=== PATIENT | female | born 1950 | race Caucasian/White ===

== ENCOUNTER 2018-11-19 12:34 | Observation (INO) ==
[2018-11-19] MEDS ORDERED: TUSSIONEX PENNKINETIC SUSP PO PRN (13:59)
[2018-11-19 14:29] LABS: BASOPHILS % (AUTO) 0.4 % (0.2-1.0); EOSINOPHILS # (AUTO) 0.2 x10^3/uL (0.0-0.2); LYMPHOCYTES # (AUTO) 1.8 X10^3/uL (1.3-2.9); MEAN CORPUSCULAR HEMOGLOBIN 29.9 pg (27.0-34.0); MEAN CORPUSCULAR HGB CONC 34.1 g/dL (33.0-35.0); MEAN CORPUSCULAR VOLUME 87.5 fL (80.0-100.0); MEAN PLATELET VOLUME 8.8 fL (7.4-11.0); MONOCYTES # (AUTO) 0.4 x10^3/uL (0.3-0.8); MONOCYTES % (AUTO) 3.7 % (0.0-13.0); NEUTROPHILS # (AUTO) 8.9 x10^3/uL (2.2-4.8); NEUTROPHILS % (AUTO) 77.9 % (42.0-75.0); PLATELET COUNT 314 X10^3/uL (150.0-450.0); RED BLOOD COUNT 5.03 X10^6/uL (3.5-5.4); RED CELL DISTRIBUTION WIDTH 14.2 % (11.6-16.5); WHITE BLOOD COUNT 11.5 X10^3/uL (3.6-10.0)
--- NOTE | 2018-11-19 14:37 | RAD ---
Exam: Chest two views History: 68-year-old female with pneumonia Comparison: Previous chest radiograph from 03/28/2013 Findings: Heart size and pulmonary vasculature are normal. Lungs are clear with no infiltrate or significant effusion on either side. Multiple surgical clips are present the right axillary region. Bony thorax is unremarkable. Impression: No acute cardiopulmonary abnormality is seen on this exam Reported By:
[2018-11-19 14:40] LABS: ALANINE AMINOTRANSFERASE 74 Units/L (12-78); ALKALINE PHOSPHATASE 65 Units/L (46-116); ASPARTATE AMINO TRANSFERASE 53 Units/L (15-37); BLOOD UREA NITROGEN 14 mg/dL (7-18); CALCIUM 9.8 mg/dL (8.5-10.1); CARBON DIOXIDE 25.8 mmol/L (21-32); CHLORIDE 103 mmol/L (98-107); COR NA(FOR HYPERGLY) 145 mmol/L (136-145); CREATININE 0.93 mg/dL (0.55-1.02); SODIUM 143 mmol/L (136-145); TOTAL PROTEIN 7.7 g/dL (6.4-8.2); eGFR NON BLACK RACES > 60 (>60)
[2018-11-19] MEDS: DUONEB 0.5 MG/3 MG NEB SCH ×2 (15:40→20:34)
[2018-11-19] MEDS ORDERED: SALINE 3% 15 ML NEB TX NEB ONE (16:03)
[2018-11-19] MEDS ORDERED: NS 1/2 1000 ML IV 1,000 ML IV ONE (16:10)
[2018-11-19] MEDS: FORTAZ or TAZICEF VIAL INJ IVP SCH ×2 (16:21→21:50)
[2018-11-19] MEDS: ROBITUSSIN DM PO SCH ×2 (16:22→20:34)
[2018-11-19] MEDS: NS 1/2 1000 ML IV 1,000 ML IV SCH (16:22)
[2018-11-19] MEDS: LEVAQUIN PREMIX IV 750 MG 750 MG/150 ML BAG IV SCH (16:22)
[2018-11-19] MEDS ORDERED: HumuLIN R SUBCUT PRN (16:48)
[2018-11-19] MEDS ORDERED: RESTORIL CAP 15 MG PO PRN (19:16)
[2018-11-19] MEDS: NORCO 5/325 MG TAB PO PRN (20:32)
[2018-11-19] MEDS: SNACK - Diabetic Appropriate PO SCH (20:41)
[2018-11-19 22:09] VITALS: BMI 27.1
[2018-11-20] MEDS: DUONEB 0.5 MG/3 MG NEB SCH ×6 (00:58→20:36)
[2018-11-20] MEDS ORDERED: NS 1/2 1000 ML IV 0 ML IV ONE (04:42)
[2018-11-20] MEDS: FORTAZ or TAZICEF VIAL INJ IVP SCH ×3 (05:05→21:23)
[2018-11-20] MEDS: NS 1/2 1000 ML IV 1,000 ML IV SCH ×3 (05:05→21:40)
[2018-11-20 06:14] LABS: BASOPHILS # (AUTO) 0.1 X10^3/uL (0.0-0.1); BASOPHILS % (AUTO) 0.5 % (0.2-1.0); EOSINOPHILS # (AUTO) 0.3 x10^3/uL (0.0-0.2); EOSINOPHILS % (AUTO) 3.3 % (0.9-2.9); HEMATOCRIT 42.3 % (36.0-47.0); HEMOGLOBIN 14.2 g/dL (12.0-16.0); LYMPHOCYTES # (AUTO) 2.3 X10^3/uL (1.3-2.9); LYMPHOCYTES % (AUTO) 23.1 % (21.0-51.0); MEAN CORPUSCULAR HEMOGLOBIN 29.6 pg (27.0-34.0); MEAN CORPUSCULAR HGB CONC 33.7 g/dL (33.0-35.0); MEAN CORPUSCULAR VOLUME 87.9 fL (80.0-100.0); MONOCYTES # (AUTO) 0.6 x10^3/uL (0.3-0.8); MONOCYTES % (AUTO) 5.7 % (0.0-13.0); NEUTROPHILS # (AUTO) 6.7 x10^3/uL (2.2-4.8); NEUTROPHILS % (AUTO) 67.4 % (42.0-75.0); PLATELET COUNT 284 X10^3/uL (150.0-450.0); RED BLOOD COUNT 4.81 X10^6/uL (3.5-5.4); RED CELL DISTRIBUTION WIDTH 14.3 % (11.6-16.5)
[2018-11-20 06:25] LABS: ALANINE AMINOTRANSFERASE 61 Units/L (12-78); ALBUMIN 3.6 g/dL (3.4-5.0); ALKALINE PHOSPHATASE 66 Units/L (46-116); ASPARTATE AMINO TRANSFERASE 31 Units/L (15-37); BLOOD UREA NITROGEN 15 mg/dL (7-18); CALCIUM 9.3 mg/dL (8.5-10.1); CARBON DIOXIDE 28.3 mmol/L (21-32); CHLORIDE 102 mmol/L (98-107); COR NA(FOR HYPERGLY) 145 mmol/L (136-145); CREATININE 0.92 mg/dL (0.55-1.02); SODIUM 143 mmol/L (136-145); TOTAL PROTEIN 7.1 g/dL (6.4-8.2); eGFR NON BLACK RACES > 60 (>60)
[2018-11-20] MEDS ORDERED: POTASSIUM CHL 40 MEQ/NS 0.45% 500 ML IV PRN (06:36)
[2018-11-20] MEDS ORDERED: K-DUR TAB 20 MEQ PO PRN (06:36)
[2018-11-20] MEDS ORDERED: MICRO K EXTEN CAP 10 MEQ PO PRN (06:36)
[2018-11-20] MEDS ORDERED: KLOR-CON PO PRN (06:36)
[2018-11-20] MEDS ORDERED: POTASSIUM CHLORIDE LIQ 20 MEQ UDC PO PRN (06:36)
[2018-11-20] MEDS ORDERED: POTASSIUM CHL 60 MEQ/NS 0.45% 500 ML IV PRN (06:36)
[2018-11-20] MEDS ORDERED: K-RIDER 10 MEQ/NS 100 ML 10 MEQ/100 ML BAG IV PRN (06:36)
--- NOTE | 2018-11-20 07:15 | RAD ---
HISTORY: Pneumonia. Prior history of hypertension, diabetes, sarcoidosis Study: Single-view chest Comparison: 11/19/2018. Findings: Trachea is midline. Heart size is normal. There is atherosclerotic calcification and uncoiling of the aortic arch. Mild hyperinflation of the lungs is seen with increased interstitial markings bilaterally. No consolidation, pleural fluid or pneumothorax is seen. There are multiple surgical clips present in the right axilla. Osseous structures are intact. IMPRESSION: Hyperinflation of the lungs with increased interstitial markings. In the appropriate clinical setting findings may indicate COPD. An acute process is not identified. Reported By:
[2018-11-20] MEDS ORDERED: NS 1/2 1000 ML IV 1,000 ML IV ONE ×2 (08:21→21:37)
[2018-11-20] MEDS: LEVAQUIN PREMIX IV 750 MG 750 MG/150 ML BAG IV SCH (08:45)
[2018-11-20] MEDS: ROBITUSSIN DM PO SCH ×4 (08:45→21:23)
[2018-11-20] MEDS: MAGNESIUM SULFATE 1 GRAM/100 mL PREMIX 1 GM/100 ML BAG IV PRN ×2 (11:00→15:00)
[2018-11-20] MEDS: NORCO 5/325 MG TAB PO PRN (11:40)
[2018-11-20] MEDS: ZEBETA TAB 5 MG PO SCH (12:00)
[2018-11-20] MEDS: NexIUM PO SCH (12:00)
[2018-11-20] MEDS: TESSALON PERLES PO SCH ×3 (12:00→21:23)
[2018-11-20] MEDS: EFFEXOR XR 150 MG CAP PO SCH (12:00)
[2018-11-20] MEDS: SYNTHROID 125 mcg TAB PO SCH (12:01)
[2018-11-20] MEDS: GLUCOPHAGE XR PO SCH ×2 (12:01→21:24)
[2018-11-20] MEDS: SINGULAIR TAB 10 MG PO SCH ×2 (12:01→21:24)
[2018-11-20] MEDS: TORADOL 30 MG VIAL IVP SCH ×2 (12:01→21:24)
[2018-11-20] MEDS: TUSSIONEX PENNKINETIC SUSP PO SCH ×3 (12:02→23:05)
[2018-11-20] MEDS: PULMICORT NEB TX 0.5 MG NEB SCH ×2 (12:08→20:36)
[2018-11-20] MEDS: IRBESARTAN HYDROCHLOROTHIAZIDE PO SCH ×2 (15:18→18:07)
[2018-11-20] MEDS ORDERED: NORCO 10/325 TAB PO PRN (15:20)
[2018-11-20] MEDS: PATIENT'S HOME MEDICATION (Empagliflozin [Jardiance] 25 MG) PO SCH ×2 (16:33→18:07)
[2018-11-20] MEDS ORDERED: PATIENT'S HOME MEDICATION (Eszopiclone [Lunesta] 3 MG) PO SCH (21:00)
[2018-11-20] MEDS ORDERED: LIPITOR TAB 20 MG PO SCH (21:00)
[2018-11-20] MEDS: SNACK - Diabetic Appropriate PO SCH (21:22)
[2018-11-21] MEDS: DUONEB 0.5 MG/3 MG NEB SCH ×4 (01:52→13:48)
[2018-11-21] MEDS: TORADOL 30 MG VIAL IVP SCH ×2 (03:03→11:16)
[2018-11-21] MEDS: FORTAZ or TAZICEF VIAL INJ IVP SCH ×2 (05:44→13:31)
[2018-11-21] MEDS: TESSALON PERLES PO SCH ×2 (05:44→13:31)
[2018-11-21 07:02] LABS: ALANINE AMINOTRANSFERASE 50 Units/L (12-78); ALBUMIN 3.2 g/dL (3.4-5.0); ALKALINE PHOSPHATASE 57 Units/L (46-116); ASPARTATE AMINO TRANSFERASE 27 Units/L (15-37); BLOOD UREA NITROGEN 12 mg/dL (7-18); CALCIUM 8.7 mg/dL (8.5-10.1); CARBON DIOXIDE 23.6 mmol/L (21-32); CHLORIDE 106 mmol/L (98-107); COR CA(FOR HYPOALB) 9.3 mg/dL (8.5-10.1); COR NA(FOR HYPERGLY) 143 mmol/L (136-145); CREATININE 0.85 mg/dL (0.55-1.02); MAGNESIUM 1.9 mg/dL (1.7-2.9); SODIUM 142 mmol/L (136-145); TOTAL PROTEIN 6.3 g/dL (6.4-8.2); eGFR NON BLACK RACES > 60 (>60)
[2018-11-21 07:23] LABS: BASOPHILS % (AUTO) 0.4 % (0.2-1.0); EOSINOPHILS # (AUTO) 0.5 x10^3/uL (0.0-0.2); EOSINOPHILS % (AUTO) 5.7 % (0.9-2.9); HEMATOCRIT 36.5 % (36.0-47.0); HEMOGLOBIN 12.7 g/dL (12.0-16.0); LYMPHOCYTES # (AUTO) 1.7 X10^3/uL (1.3-2.9); LYMPHOCYTES % (AUTO) 19.5 % (21.0-51.0); MEAN CORPUSCULAR HEMOGLOBIN 30.5 pg (27.0-34.0); MEAN CORPUSCULAR HGB CONC 34.9 g/dL (33.0-35.0); MEAN CORPUSCULAR VOLUME 87.3 fL (80.0-100.0); MEAN PLATELET VOLUME 9.2 fL (7.4-11.0); MONOCYTES # (AUTO) 0.5 x10^3/uL (0.3-0.8); MONOCYTES % (AUTO) 5.4 % (0.0-13.0); NEUTROPHILS # (AUTO) 5.9 x10^3/uL (2.2-4.8); PLATELET COUNT 260 X10^3/uL (150.0-450.0); RED BLOOD COUNT 4.18 X10^6/uL (3.5-5.4); RED CELL DISTRIBUTION WIDTH 14.2 % (11.6-16.5); WHITE BLOOD COUNT 8.5 X10^3/uL (3.6-10.0)
[2018-11-21] MEDS: PULMICORT NEB TX 0.5 MG NEB SCH (09:03)
[2018-11-21] MEDS: LEVAQUIN PREMIX IV 750 MG 750 MG/150 ML BAG IV SCH (09:38)
[2018-11-21] MEDS: NexIUM PO SCH (09:39)
[2018-11-21] MEDS: ROBITUSSIN DM PO SCH ×2 (09:39→13:31)
[2018-11-21] MEDS: GLUCOPHAGE XR PO SCH (09:39)
[2018-11-21] MEDS: EFFEXOR XR 150 MG CAP PO SCH (09:40)
[2018-11-21] MEDS: ZEBETA TAB 5 MG PO SCH (09:40)
[2018-11-21] MEDS: NS 1/2 1000 ML IV 1,000 ML IV SCH (09:40)
[2018-11-21] MEDS: SYNTHROID 125 mcg TAB PO SCH (09:40)
[2018-11-21] MEDS: IRBESARTAN HYDROCHLOROTHIAZIDE PO SCH (09:47)
[2018-11-21] MEDS: PATIENT'S HOME MEDICATION (Empagliflozin [Jardiance] 25 MG) PO SCH (09:47)
[2018-11-21] MEDS: TUSSIONEX PENNKINETIC SUSP PO SCH (11:17)
[2018-11-21 12:16] VITALS: BP 113/58
--- NOTE | 2018-11-21 13:05 | RAD ---
HISTORY: Pneumonia Study: AP portable chest Comparison: 11/20/2018 Findings: The lungs remain clear. The heart size is normal. Surgical clips are present in the right axilla suggesting axillary node dissection. No acute bony abnormalities are identified. IMPRESSION: 1. No radiographic evidence of acute cardiopulmonary disease or significant change is noted when compared to the prior examination. Reported By:
[2018-11-21] MEDS ORDERED: NS 100 ML IV + SPIKE MINIBAG* 100 ML IV ONE (13:25)
== END 2018-11-21 14:50 | disposition home or self-care (01) ==
LOC: MED/SURG
PROVIDERS: ADMIT Internal Medicine; ATTEND Internal Medicine
DX: Z85.3 Personal history of malignant neoplasm of breast; J18.9 Pneumonia, unspecified organism; R51 Headache; Z90.13 Acquired absence of bilateral breasts and nipples
CPT/HCPCS: 36415; 71010; 71020; 71045; 71046; 80053; 83735; 84132; 85025; 87040; 87070; 87205; 94640; 94760; 96367; 96374; A4222; G0378; J0713; J1815; J1885; J1956; J3475; J7620; J7626

== ENCOUNTER 2025-01-20 12:04 | Observation (INO) ==
[2025-01-20] MEDS: ZOFRAN INJ 4 MG VIAL IVP ONE (12:43)
[2025-01-20] MEDS: MORPHINE SULFATE INJ 4 MG IVP ONE (12:45)
[2025-01-20 12:46] VITALS: BMI 24.5
[2025-01-20 13:01] LABS: BASOPHILS # (AUTO) 0.1 X10^3/uL (0.0-0.1); BASOPHILS % (AUTO) 0.4 % (0.2-1.0); EOSINOPHILS # (AUTO) 0.3 x10^3/uL (0.0-0.2); EOSINOPHILS % (AUTO) 2.2 % (0.9-2.9); HEMATOCRIT 44.8 % (36.0-47.0); HEMOGLOBIN 15.4 g/dL (12.0-16.0); LYMPHOCYTES # (AUTO) 1.4 X10^3/uL (1.3-2.9); LYMPHOCYTES % (AUTO) 11.7 % (21.0-51.0); MEAN CORPUSCULAR HEMOGLOBIN 32.1 pg (27.0-34.0); MEAN CORPUSCULAR HGB CONC 34.3 g/dL (33.0-35.0); MEAN CORPUSCULAR VOLUME 93.6 fL (80.0-100.0); MONOCYTES # (AUTO) 0.5 x10^3/uL (0.3-0.8); MONOCYTES % (AUTO) 4.2 % (0.0-13.0); NEUTROPHILS # (AUTO) 9.7 x10^3/uL (2.2-4.8); NEUTROPHILS % (AUTO) 81.5 % (42.0-75.0); PLATELET COUNT 265 X10^3/uL (150.0-450.0); RED BLOOD COUNT 4.79 X10^6/uL (3.5-5.4); RED CELL DISTRIBUTION WIDTH 14.1 % (11.6-16.5); WHITE BLOOD COUNT 11.9 X10^3/uL (3.6-10.0)
[2025-01-20] MEDS: ZOSYN VIAL 3.375 GRAMS 3.375 G in NS 100 ML IV 100 ML IV SCH (13:01)
[2025-01-20] MEDS: NS 1,000 ML IV 1,000 ML IV ONE (13:01)
--- NOTE | 2025-01-20 13:06 | EKG ---
Test Reason : pre-op Blood Pressure : */* mmHG Vent. Rate : 66 BPM Atrial Rate : 66 BPM P-R Int : 160 ms QRS Dur : 72 ms QT Int : 396 ms P-R-T Axes : 113 9 26 degrees QTc Int : 415 ms Normal sinus rhythm Low voltage QRS Nonspecific ST and T wave abnormality Septal infarct , age undetermined Abnormal ECG No previous ECGs available Confirmed by Samy Johnson MD ([id number]) on 01/21/2025 5:45:18 AM Referred By: Confirmed By: Samy Johnson MD
[2025-01-20 13:08] LABS: INR 1.08 (0.8-1.3)
[2025-01-20 13:12] LABS: ALANINE AMINOTRANSFERASE 23 Units/L (12-78); ALBUMIN 3.6 g/dL (3.4-5.0); ALKALINE PHOSPHATASE 95 Units/L (46-116); ASPARTATE AMINO TRANSFERASE 13 Units/L (15-37); BLOOD UREA NITROGEN 13 mg/dL (7-18); CALCIUM 9.1 mg/dL (8.5-10.1); CARBON DIOXIDE 31.6 mmol/L (21-32); CHLORIDE 103 mmol/L (98-107); COR NA(FOR HYPERGLY) 142 mmol/L (136-145); CREATININE 0.74 mg/dL (0.55-1.02); GLUCOSE 157 mg/dL (65-99); LIPASE 52 Units/L (16-77); POTASSIUM 3.7 mmol/L (3.5-5.1); SODIUM 141 mmol/L (136-145); TOTAL PROTEIN 7.6 g/dL (6.4-8.2); eGFR NON BLACK RACES > 60 (>60)
--- NOTE | 2025-01-20 13:22 | RAD ---
EXAM: Portable chest HISTORY: Preop appendicitis COMPARISON: 02/08/2022 FINDINGS: Heart size is normal. Anita are normal. Lung smith are clear. No pleural effusions are identifie d. Bony thorax is unremarkable. IMPRESSION: Lungs clear THIS IS AN ELECTRONICALLY VERIFIED FINAL REPORT 01/20/2025 1:19 PM - Electronically signed by Emiliano Kim MD
--- NOTE | 2025-01-20 13:40 | ED.ABDFE ---
HPI Time Seen Time Seen by Provider: 01/20/25 12:27 PCP Primary Care Physician: HARRY Walters Complaint Doctors Chief Complaint Comments: 74 yo F, hx of HTN, hyperlipidemia, hypothyroidism, c/o one year of RLQ pain described as intermittent aching in nature. Pt states that over the past few days the pain has been a little worse than normal. Pain is worse with standing up or changing positions. Denies any fever, nausea, vomiting, diarrhea, or constipation. Pt had outpt CT ordered by PCP this am, sent to ER after finding acute appendicitis on CT. Chief Complaint:: RLQ abd pain Self Treatment fo Chief Complaint: Pt took [place] 10/325 last around 10:30 this morning with some improvement of pain. Pt had outpatient CT abdomen/pelvis this morning that showed evidence of acute appendicitis. COVID-19 Coronavirus risk:travel/contact w/high risk person: No Has patient experienced Coronavirus symptoms: No Source History Provided: Patient Mode of arrival Mode of Arrival: Wheelchair Timing Onset of Chief Complaint: 01/20/25 PMH PMH Past Medical History: Yes Past Medical History: Diabetes, Dyslipidemia, GERD, Hypertension, Hypothyroidism and Kidney Stones Past Medical History Comment: SCI, Breast Cancer Past Surgical History: Yes Surgical History: Cholecystectomy, Hysterectomy, Ortho Surgery and Tonsillectomy Past Surgical History Comment: bilateral mastectomy, back surgery x 3 Family History History of Family Medical Conditions: Yes Family Medical History: Cancer, [place] and Coronary Artery Disease Social History Does patient currently use any type of tobacco product: No Have you used tobacco products in the last 12 months: No Type of Tobacco Use: None Does any household member use tobacco: No Alcohol Use: None Do you use any recreational Drugs:: No Lives With: Significant Other Lives Where: Home Travel Risk Coronavirus risk:travel/contact w/high risk person: No Has patient experienced Coronavirus symptoms: No Infectious screening In the last 2 months have you had wt loss of >10#?: NO Have you had fever, night sweats or hemotysis?: No Have you traveled outside the country in the last 6 months?: No Isolation: Standard ROS Review of Systems Gastrointestinal/Abdominal: Abdominal Pain (RLQ pain) All Other Systems: Reviewed and Negative PE Vital Signs Vitals: Vital Signs Temperature 98.2 F Pulse Rate 67 Pulse Rate 66 Pulse Rate 69 Pulse Rate 69 Pulse Rate 68 Pulse Rate 67 Pulse Rate 75 Respiratory Rate 20 Respiratory Rate 16 Respiratory Rate 18 Respiratory Rate 18 Blood Pressure 139/64 Blood Pressure 100/79 Blood Pressure 132/60 Blood Pressure 129/53 O2 Sat by Pulse Oximetry 99 O2 Sat by Pulse Oximetry 98 O2 Sat by Pulse Oximetry 96 O2 Sat by Pulse Oximetry 96 O2 Sat by Pulse Oximetry 99 O2 Sat by Pulse Oximetry 98 O2 Sat by Pulse Oximetry 96 General Limitations: No Limitations and Language Barrier General Appearance: Alert and In No Apparent Distress Head Head Exam: Normal Inspection Eyes Eye exam: Normal Appearance ENT ENT Exam: Normal Exam Neck Neck Exam: Normal Inspection Chest Chest Inspection: Normal Inspection Respiratory Respiratory Exam: Normal Lung Sounds Bilat Cardiovascular Cardiovascular Exam: Regular Rate and Normal Rhythm Abdominal Exam Abdominal Exam: Soft; negative Guarding, Rebound or Rigidity Abdominal Tenderness: RLQ Rectal Rectal Exam: Deferred Back Back Exam: Normal Inspection Extremeties Extremities Exam: Normal Inspection Neurologic Neurological Exam: Alert and Oriented X3 Psychiatric Psychiatric Exam: Normal Affect and Normal Mood Skin Skin Exam: Warm, Dry and Intact COURSE Consultation Consultation Comments: Dr Merino has come to ER to assess pt, will observe here until tomorrow morning, surgery likely tomorrow. Dr Baum agrees to admit pt. Education/Counseling Education/Counseling: Patient Educated On: Treatment and Diagnosis ROR Labs Reviewed 01/20/25 12:42 01/20/25 12:42 Laboratory: WBC 11.9 X10^3/uL (3.6-10.0) H 01/20/25 12:42 RBC 4.79 X10^6/uL (3.5-5.4) 01/20/25 12:42 Hgb 15.4 g/dL (12.0-16.0) 01/20/25 12:42 Hct 44.8 % (36.0-47.0) 01/20/25 12:42 MCV 93.6 fL (80.0-100.0) 01/20/25 12:42 MCH 32.1 pg (27.0-34.0) 01/20/25 12:42 MCHC 34.3 g/dL (33.0-35.0) 01/20/25 12:42 RDW 14.1 % (11.6-16.5) 01/20/25 12:42 Plt Count 265 X10^3/uL (150.0-450.0) 01/20/25 12:42 MPV 8.0 fL (7.4-11.0) 01/20/25 12:42 Neut % (Auto) 81.5 % (42.0-75.0) H 01/20/25 12:42 Lymph % (Auto) 11.7 % (21.0-51.0) L 01/20/25 12:42 [place] % (Auto) 4.2 % (0.0-13.0) 01/20/25 12:42 Eos % (Auto) 2.2 % (0.9-2.9) 01/20/25 12:42 Baso % (Auto) 0.4 % (0.2-1.0) 01/20/25 12:42 Neut # (Auto) 9.7 x10^3/uL (2.2-4.8) H 01/20/25 12:42 Lymph # (Auto) 1.4 X10^3/uL (1.3-2.9) 01/20/25 12:42 [place] # (Auto) 0.5 x10^3/uL (0.3-0.8) 01/20/25 12:42 Eos # (Auto) 0.3 x10^3/uL (0.0-0.2) H 01/20/25 12:42 Baso # (Auto) 0.1 X10^3/uL (0.0-0.1) 01/20/25 12:42 Absolute Nucleated RBC 0.0 /100WBC 01/20/25 12:42 PT 13.8 SECONDS (11.8-14.3) 01/20/25 12:42 INR Target Range - 01/20/25 12:42 INR 1.08 (0.8-1.3) 01/20/25 12:42 APTT 31.3 SECONDS (22.9-36.5) 01/20/25 12:42 PTT Comment - 01/20/25 12:42 Sodium 141 mmol/L (136-145) 01/20/25 12:42 Corrected Sodium 142 mmol/L (136-145) 01/20/25 12:42 Potassium 3.7 mmol/L (3.5-5.1) 01/20/25 12:42 Chloride 103 mmol/L (98-107) 01/20/25 12:42 Carbon Dioxide 31.6 mmol/L (21-32) 01/20/25 12:42 BUN 13 mg/dL (7-18) 01/20/25 12:42 Creatinine 0.74 mg/dL (0.55-1.02) 01/20/25 12:42 Est GFR (MDRD) Af Amer > 60 (>60) 01/20/25 12:42 Est GFR (MDRD) Non-Af > 60 (>60) 01/20/25 12:42 Glucose 157 mg/dL (65-99) H 01/20/25 12:42 Calcium 9.1 mg/dL (8.5-10.1) 01/20/25 12:42 Corrected Calcium TNP 01/20/25 12:42 Total Bilirubin 0.20 mg/dL (0.2-1.0) 01/20/25 12:42 AST 13 Units/L (15-37) L 01/20/25 12:42 ALT 23 Units/L (12-78) 01/20/25 12:42 Alkaline Phosphatase 95 Units/L (46-116) 01/20/25 12:42 Total Protein 7.6 g/dL (6.4-8.2) 01/20/25 12:42 Albumin 3.6 g/dL (3.4-5.0) 01/20/25 12:42 Globulin 4.0 g/dL (2.5-4.5) 01/20/25 12:42 Albumin/Globulin Ratio 0.9 Ratio (1.1-2.1) L 01/20/25 12:42 Lipase 52 Units/L (16-77) 01/20/25 12:42 Specimen Type Catherized urine 01/20/25 14:00 Urine Color Pale yellow (YELLOW) 01/20/25 14:00 Urine Appearance Hazy (CLEAR) 01/20/25 14:00 Urine pH 6.0 (5.0 - 8.0) 01/20/25 14:00 Ur Specific [place] 1.015 (1.000-1.030) 01/20/25 14:00 Urine Protein 2+ (NEGATIVE) 01/20/25 14:00 Urine Glucose (UA) 4+ (NEGATIVE) 01/20/25 14:00 Urine Ketones Negative (NEGATIVE) 01/20/25 14:00 Urine Blood 3+ (NEGATIVE) 01/20/25 14:00 Urine Nitrite Negative (NEGATIVE) 01/20/25 14:00 Urine Bilirubin Negative (NEGATIVE) 01/20/25 14:00 Urine Urobilinogen Normal (NORMAL) 01/20/25 14:00 Ur Leukocyte Esterase 3+ (NEGATIVE) 01/20/25 14:00 Urine RBC 5-10 /HPF (0-3) A 01/20/25 14:00 Urine WBC Tntc /HPF (0-5) A 01/20/25 14:00 Ur Squamous Epith Cells Rare /HPF (NEGATIVE) 01/20/25 14:00 Urine Bacteria Trace /HPF (NEGATIVE) 01/20/25 14:00 Urine Yeast Few /HPF (NEGATIVE) 01/20/25 14:00 Ur Culture Indicated? Yes/culture set up 01/20/25 14:00 Opioid Opioid Risk Tool Age (David box if 16-45): No History of Preadolescent Sexual Abuse: No Total: 0 Total Score Risk Category: Low Risk Copyright: Bertram SAMANIEGO predicting aberrant behaviors Discharge Plan Diagnosis Discharge Problem: Acute appendicitis, Acute UTI Discharge Plan Patient Disposition: ADMITTED INPATIENT Condition: Stable Orders to Discharge Patient Discharge Orders: Transfer (Routine); Ordered 01/20/25 Ordered By: Fabian Pugh
[2025-01-20 14:10] LABS: BILIRUBIN,URINE NEGATIVE (NEGATIVE); BLOOD/HEMOGLOBIN,URINE 3+ (NEGATIVE); GLUCOSE, URINE 4+ (NEGATIVE); KETONES,URINE NEGATIVE (NEGATIVE); LEUKOCYTE ESTERASE ,URINE 3+ (NEGATIVE); NITRITES,URINE NEGATIVE (NEGATIVE); PROTEIN,URINE 2+ (NEGATIVE); UROBILINOGEN,URINE NORMAL (NORMAL)
[2025-01-20 14:22] LABS: APPEARANCE,URINE HAZY (CLEAR); BACTERIA,URINE TRACE /HPF (NEGATIVE); COLOR,URINE PALE YELLOW (YELLOW); SQUAMOUS EPITHELIAL CELL,UR RARE /HPF (NEGATIVE)
[2025-01-20 14:23] LABS: YEAST,URINE FEW /HPF (NEGATIVE)
[2025-01-20] MEDS: NS 1,000 ML IV 1,000 ML ONE (15:45)
[2025-01-20] MEDS ORDERED: NovoLIN R (or HumuLIN R) SUBCUT PRN (16:01)
[2025-01-20] MEDS: NS 1,000 ML IV 1,000 ML IV SCH (16:41)
[2025-01-20] MEDS: NORCO 10/325 TAB PO SCH (16:41)
[2025-01-20] MEDS: LIORESAL PO SCH (16:41)
[2025-01-20] MEDS: SNACK - Diabetic Appropriate PO SCH (21:16)
[2025-01-20] MEDS: NEURONTIN TAB 600 MG PO SCH (21:18)
[2025-01-20] MEDS: NS 250 ML IV 25 ML IV PRN (21:19)
[2025-01-20] MEDS: SEROquel TAB 25 mg PO SCH (21:53)
[2025-01-20] MEDS ORDERED: DUONEB 0.5 MG/3 MG (3 mL) NEB SCH (22:00)
[2025-01-21 07:07] LABS: BASOPHILS # (AUTO) 0.1 X10^3/uL (0.0-0.1); BASOPHILS % (AUTO) 0.6 % (0.2-1.0); EOSINOPHILS # (AUTO) 0.3 x10^3/uL (0.0-0.2); EOSINOPHILS % (AUTO) 3.9 % (0.9-2.9); HEMATOCRIT 43.5 % (36.0-47.0); LYMPHOCYTES # (AUTO) 1.3 X10^3/uL (1.3-2.9); LYMPHOCYTES % (AUTO) 15.3 % (21.0-51.0); MEAN CORPUSCULAR HEMOGLOBIN 32.2 pg (27.0-34.0); MEAN CORPUSCULAR HGB CONC 34.4 g/dL (33.0-35.0); MEAN CORPUSCULAR VOLUME 93.4 fL (80.0-100.0); MEAN PLATELET VOLUME 7.6 fL (7.4-11.0); MONOCYTES # (AUTO) 0.5 x10^3/uL (0.3-0.8); MONOCYTES % (AUTO) 6.1 % (0.0-13.0); NEUTROPHILS # (AUTO) 6.5 x10^3/uL (2.2-4.8); NEUTROPHILS % (AUTO) 74.1 % (42.0-75.0); PLATELET COUNT 213 X10^3/uL (150.0-450.0); RED BLOOD COUNT 4.65 X10^6/uL (3.5-5.4); RED CELL DISTRIBUTION WIDTH 14.2 % (11.6-16.5); WHITE BLOOD COUNT 8.7 X10^3/uL (3.6-10.0)
[2025-01-21 07:12] LABS: INR 1.09 (0.8-1.3)
[2025-01-21] MEDS: NS 1,000 ML IV 700 ML IV PRN (07:15)
[2025-01-21 07:17] LABS: ALANINE AMINOTRANSFERASE 47 Units/L (12-78); ALKALINE PHOSPHATASE 82 Units/L (46-116); ASPARTATE AMINO TRANSFERASE 49 Units/L (15-37); BLOOD UREA NITROGEN 11 mg/dL (7-18); CALCIUM 8.7 mg/dL (8.5-10.1); CARBON DIOXIDE 30.4 mmol/L (21-32); CHLORIDE 107 mmol/L (98-107); COR CA(FOR HYPOALB) 9.5 mg/dL (8.5-10.1); CREATININE 0.64 mg/dL (0.55-1.02); GLUCOSE 94 mg/dL (65-99); MAGNESIUM 1.7 mg/dL (2.0-2.9); SODIUM 145 mmol/L (136-145); TOTAL PROTEIN 6.6 g/dL (6.4-8.2); eGFR NON BLACK RACES > 60 (>60)
[2025-01-21] MEDS: TRANSDERM-SCOP TD PRN (07:20)
[2025-01-21] MEDS: ZOFRAN INJ 4 MG VIAL IVP PRN (07:30)
[2025-01-21] MEDS: VERSED IVP PRN (07:30)
[2025-01-21] MEDS: PEPCID 20 MG VIAL IVP PRN (07:31)
[2025-01-21] MEDS: REGLAN INJ 10 MG VIAL IVP PRN (07:34)
[2025-01-21] MEDS ORDERED: ULTANE GAS IN ONE (07:46)
[2025-01-21] MEDS ORDERED: XYLOCAINE 2 % (PLAIN) ONE (07:46)
[2025-01-21] MEDS ORDERED: KETAMINE HCL ONE (07:46)
[2025-01-21] MEDS: FENTANYL VIAL INJ 100 mcg IVP PRN (07:55)
[2025-01-21] MEDS: DECADRON INJ IVP PRN (07:56)
[2025-01-21] MEDS: DIPRIVAN VIAL 100 ML IVP PRN (07:57)
[2025-01-21] MEDS: XYLOCAINE 2 % (PLAIN) INJ PRN (07:57)
[2025-01-21] MEDS: ZEMURON 100 MG VIAL IVP PRN (07:58)
[2025-01-21] MEDS ORDERED: CONSULT PHARMACY - POTASSIUM & MAGNESIUM XX SCH (08:00)
[2025-01-21] MEDS: LUBIFRESH PM EYE OINTMENT OP PRN (08:07)
[2025-01-21] MEDS: NS 1,000 ML IV 1,000 ML ONE (08:09)
[2025-01-21] MEDS: BACTROBAN TOPICAL OINT ONE (08:09)
[2025-01-21] MEDS: OFIRMEV IV 1000 MG VIAL 1,000 MG/100 ML VIAL IV PRN (08:15)
[2025-01-21] MEDS: KETAMINE HCL IV PRN (08:26)
[2025-01-21] MEDS: EPHEDRINE SULFATE INJ IVP PRN (08:32)
[2025-01-21] MEDS: BRIDION IVP PRN (08:36)
[2025-01-21] MEDS: PRECEDEX INJ VIAL IVP PRN (08:37)
[2025-01-21] MEDS: ROBINUL IVP PRN (08:39)
[2025-01-21] MEDS ORDERED: BARHEMSYS INJ IVP PRN (08:54)
[2025-01-21] MEDS ORDERED: ZOFRAN INJ 4 MG VIAL IVP PRN (08:54)
[2025-01-21] MEDS ORDERED: DILAUDID INJ IVP PRN (08:54)
[2025-01-21] MEDS ORDERED: BENADRYL INJ 50 MG VIAL IVP PRN (08:54)
[2025-01-21] MEDS ORDERED: VALSARTAN HYDROCHLOROTHIAZIDE PO SCH (09:00)
[2025-01-21] MEDS ORDERED: SEROquel TAB 25 mg PO SCH (09:00)
[2025-01-21] MEDS ORDERED: IRBESARTAN HYDROCHLOROTHIAZIDE PO SCH (09:00)
[2025-01-21] MEDS: DIOVAN TAB 160 MG PO SCH (12:05)
[2025-01-21] MEDS: ZEBETA TAB 5 MG PO SCH (12:05)
[2025-01-21] MEDS: SYNTHROID 100 mcg TAB PO SCH (12:06)
[2025-01-21] MEDS: NexIUM PO SCH (12:06)
[2025-01-21] MEDS: SINGULAIR TAB 10 MG PO SCH (12:06)
[2025-01-21] MEDS: EFFEXOR XR 150 MG CAP 24-HR PO SCH (12:07)
[2025-01-21] MEDS: FOLIC ACID TAB 1 MG PO SCH (12:07)
[2025-01-21] MEDS: LIPITOR TAB 20 MG PO SCH (12:07)
[2025-01-21] MEDS: HYDROCHLOROTHIAZIDE 12.5 MG CAP PO SCH (12:07)
[2025-01-21] MEDS: FARXIGA PO SCH (12:07)
[2025-01-21] MEDS: NS 1,000 ML IV 1,000 ML with MAGNESIUM SULFATE 50% INJ VIAL 1 G IV SCH (13:48)
--- NOTE | 2025-01-21 18:19 | DR.H&P ---
H&P History & Physical for Day of: H&P Date: 01/20/25 Chief Complaint Chief Complaint: right abdominal pain History of Present Illness History of Present Illness: 74 yo F, hx of HTN, hyperlipidemia, hypothyroidism, c/o one year of RLQ pain described as intermittent aching in nature. Pt states that over the past few days the pain has been a little worse than normal. Pain is worse with standing up or changing positions. Denies any fever, nausea, vomiting, diarrhea, or constipation. Pt had outpt CT ordered by PCP this am, sen t to ER after finding acute appendicitis on CT. Past Medical History Past Medical History: Diabetes, Dyslipidemia, GERD, Hypertension, Hypothyroidism and Kidney Stones Past Surgical History Surgical History: Cholecystectomy, Hysterectomy, Mastectomy, Ortho Surgery and Tonsillectomy Family History Family Medical History: Cancer, [place] and Coronary Artery Disease Social History Does patient currently use any type of tobacco product: No Have you used tobacco products in the last 12 months: No Type of Tobacco Use: None Does any household member use tobacco: No Alcohol Use: None Drug Use: None Medications Home Medications: Home Medications Medication Instructions Recorded Confirmed Type esomeprazole magnesium 40 mg 40 mg PO DAILY 10/23/12 01/20/25 History capsule,delayed release (Nexium) atorvastatin 20 mg tablet (Lipitor) 20 mg PO DAILY 11/19/18 01/20/25 History bisoprolol fumarate 5 mg tablet 5 mg PO DAILY 11/19/18 01/20/25 History empagliflozin 25 mg tablet 25 mg PO DAILY 11/19/18 01/20/25 History (Jardiance) venlafaxine 150 mg 150 mg PO DAILY 11/19/18 01/20/25 History capsule,extended release 24 hr (Effexor XR) baclofen 20 mg tablet 20 mg PO Q6H 01/20/25 01/20/25 History folic acid 1 mg tablet 1 mg PO DAILY 01/20/25 01/20/25 History gabapentin 600 mg tablet 600 mg PO TID 01/20/25 01/20/25 History hydrocodone 10 mg-acetaminophen 1 tab PO QID 01/20/25 01/20/25 History 325 mg tablet levothyroxine 100 mcg tablet 100 mcg PO DAILY 01/20/25 01/20/25 History (Synthroid) montelukast 10 mg tablet 10 mg PO DAILY 01/20/25 01/20/25 History nystatin 100,000 unit/gram topical 1 applic topical BID 01/20/25 01/20/25 History ointment quetiapine 50 mg tablet 50 mg PO QHS 01/20/25 01/20/25 History tirzepatide 5 mg/0.5 mL 5 mg subcut QWEEK 01/20/25 01/20/25 History subcutaneous pen injector (Bienvenido) valsartan 160 1 tab PO DAILY 01/20/25 01/20/25 History mg-hydrochlorothiazide 12.5 mg tablet Allergies Allergies Allergy/AdvReac Type Severity Reaction Status Date / Time Sulfa (Sulfonamide Allergy Verified 01/20/25 12:21 Antibiotics) [SULFA] Labs 01/21/25 06:55 01/21/25 06:55 Labs: 01/20/25 14:00 Urine,Catheterized Urine Culture - Preliminary Laboratory WBC 8.7 X10^3/uL (3.6-10.0) 01/21/25 06:55 RBC 4.65 X10^6/uL (3.5-5.4) 01/21/25 06:55 Hgb 15.0 g/dL (12.0-16.0) 01/21/25 06:55 Hct 43.5 % (36.0-47.0) 01/21/25 06:55 MCV 93.4 fL (80.0-100.0) 01/21/25 06:55 MCH 32.2 pg (27.0-34.0) 01/21/25 06:55 MCHC 34.4 g/dL (33.0-35.0) 01/21/25 06:55 RDW 14.2 % (11.6-16.5) 01/21/25 06:55 Plt Count 213 X10^3/uL (150.0-450.0) 01/21/25 06:55 MPV 7.6 fL (7.4-11.0) 01/21/25 06:55 Neut % (Auto) 74.1 % (42.0-75.0) 01/21/25 06:55 Lymph % (Auto) 15.3 % (21.0-51.0) L 01/21/25 06:55 [place] % (Auto) 6.1 % (0.0-13.0) 01/21/25 06:55 Eos % (Auto) 3.9 % (0.9-2.9) H 01/21/25 06:55 Baso % (Auto) 0.6 % (0.2-1.0) 01/21/25 06:55 Neut # (Auto) 6.5 x10^3/uL (2.2-4.8) H 01/21/25 06:55 Lymph # (Auto) 1.3 X10^3/uL (1.3-2.9) 01/21/25 06:55 Long # (Auto) 0.5 x10^3/uL (0.3-0.8) 01/21/25 06:55 Eos # (Auto) 0.3 x10^3/uL (0.0-0.2) H 01/21/25 06:55 Baso # (Auto) 0.1 X10^3/uL (0.0-0.1) 01/21/25 06:55 Absolute Nucleated RBC 0.1 /100WBC 01/21/25 06:55 PT 13.9 SECONDS (11.8-14.3) 01/21/25 06:55 INR Target Range - 01/21/25 06:55 INR 1.09 (0.8-1.3) 01/21/25 06:55 APTT 30.5 SECONDS (22.9-36.5) 01/21/25 06:55 PTT Comment - 01/21/25 06:55 Sodium 145 mmol/L (136-145) 01/21/25 06:55 Corrected Sodium TNP 01/21/25 06:55 Potassium 4.0 mmol/L (3.5-5.1) 01/21/25 06:55 Chloride 107 mmol/L (98-107) 01/21/25 06:55 Carbon Dioxide 30.4 mmol/L (21-32) 01/21/25 06:55 BUN 11 mg/dL (7-18) 01/21/25 06:55 Creatinine 0.64 mg/dL (0.55-1.02) 01/21/25 06:55 Est GFR (MDRD) Af Amer > 60 (>60) 01/21/25 06:55 Est GFR (MDRD) Non-Af > 60 (>60) 01/21/25 06:55 Glucose 94 mg/dL (65-99) 01/21/25 06:55 POC Glucose (mg/dL) 159 mg/dL (65-99) H 01/21/25 16:42 Calcium 8.7 mg/dL (8.5-10.1) 01/21/25 06:55 Corrected Calcium 9.5 mg/dL (8.5-10.1) 01/21/25 06:55 Magnesium 1.7 mg/dL (2.0-2.9) L 01/21/25 06:55 Total Bilirubin 0.30 mg/dL (0.2-1.0) 01/21/25 06:55 AST 49 Units/L (15-37) H 01/21/25 06:55 ALT 47 Units/L (12-78) 01/21/25 06:55 Alkaline Phosphatase 82 Units/L (46-116) 01/21/25 06:55 Total Protein 6.6 g/dL (6.4-8.2) 01/21/25 06:55 Albumin 3.0 g/dL (3.4-5.0) L 01/21/25 06:55 Globulin 3.6 g/dL (2.5-4.5) 01/21/25 06:55 Albumin/Globulin Ratio 0.8 Ratio (1.1-2.1) L 01/21/25 06:55 Lipase 52 Units/L (16-77) 01/20/25 12:42 Specimen Type Catherized urine 01/20/25 14:00 Urine Color Pale yellow (YELLOW) 01/20/25 14:00 Urine Appearance Hazy (CLEAR) 01/20/25 14:00 Urine pH 6.0 (5.0 - 8.0) 01/20/25 14:00 Ur Specific [place] 1.015 (1.000-1.030) 01/20/25 14:00 Urine Protein 2+ (NEGATIVE) 01/20/25 14:00 Urine Glucose (UA) 4+ (NEGATIVE) 01/20/25 14:00 Urine Ketones Negative (NEGATIVE) 01/20/25 14:00 Urine Blood 3+ (NEGATIVE) 01/20/25 14:00 Urine Nitrite Negative (NEGATIVE) 01/20/25 14:00 Urine Bilirubin Negative (NEGATIVE) 01/20/25 14:00 Urine Urobilinogen Normal (NORMAL) 01/20/25 14:00 Ur Leukocyte Esterase 3+ (NEGATIVE) 01/20/25 14:00 Urine RBC 5-10 /HPF (0-3) A 01/20/25 14:00 Urine WBC Tntc /HPF (0-5) A 01/20/25 14:00 Ur Squamous Epith Cells Rare /HPF (NEGATIVE) 01/20/25 14:00 Urine Bacteria Trace /HPF (NEGATIVE) 01/20/25 14:00 Urine Yeast Few /HPF (NEGATIVE) 01/20/25 14:00 Ur Culture Indicated? Yes/culture set up 01/20/25 14:00 Review of Systems Constitutional: No Symptoms Reported Eyes: No Symptoms Reported ENT: No Symptoms Reported Respiratory: No Symptoms Reported Cardiovascular: Edema Gastrointestinal: Abdominal Pain Genitourinary: Incontinence Musculoskeletal: Shoulder Pain, Back Pain and Neck Pain Skin: No Symptoms Reported Neurological: Weakness Physical Exam Vital Signs: Vital Signs Temperature 98.1 F Temperature 97.8 F Temperature 97.2 F Temperature 97.6 F Temperature 96.5 F Temperature 96 F Temperature 96 F Pulse Rate [Brachial] 97 Pulse Rate [Brachial] 83 Pulse Rate [Brachial] 80 Pulse Rate [Brachial] 81 Pulse Rate [Brachial] 82 Pulse Rate [Brachial] 83 Pulse Rate [Brachial] 84 Respiratory Rate 18 Respiratory Rate 18 Respiratory Rate 18 Respiratory Rate 17 Respiratory Rate 20 Respiratory Rate 17 Respiratory Rate 20 Respiratory Rate 18 Respiratory Rate 17 Respiratory Rate 18 Respiratory Rate 17 Blood Pressure [Left Arm] 129/67 Blood Pressure [Left Arm] 121/60 Blood Pressure [Left Arm] 130/65 Blood Pressure [Left Arm] 132/63 Blood Pressure [Left Arm] 138/65 Blood Pressure [Left Arm] 138/64 Blood Pressure [Left Arm] 137/66 O2 Sat by Pulse Oximetry 96 O2 Sat by Pulse Oximetry 100 O2 Sat by Pulse Oximetry 100 O2 Sat by Pulse Oximetry 99 O2 Sat by Pulse Oximetry 99 O2 Sat by Pulse Oximetry 98 O2 Sat by Pulse Oximetry 100 Oriented: Normal Eyes: Normal Nose: Normal Throat: Dry Respiratory: RLL Diminished and LLL Diminished Cardiovascular: Normal Tenderness: RLQ Skin: Decreased [place]urg[place] Musculoskeletal: Right, Hand, Back:Lumbar, Tender, Motor Deficit, Sensory Deficit and Instability Psychiatric: Depression Mood Description: Depressed Speech Pattern: Clear and Appropriate Assessment/Plan (1) Acute appendicitis: Status: Acute Plan: ADMIT, IV ATBX PAIN CONTROL, NPO FOR SURGICAL CONSULT VERIFY HOME MEDICATIONS (2) Acute UTI: Status: Acute
[2025-01-21] MEDS: DUONEB 0.5 MG/3 MG (3 mL) NEB ONE (21:19)
[2025-01-21] MEDS: BRIDION ONE (21:20)
[2025-01-21] MEDS: DIPRIVAN VIAL 20 ML ONE (21:20)
[2025-01-21] MEDS: PEPCID 20 MG VIAL ONE (21:20)
[2025-01-21] MEDS: PRECEDEX INJ VIAL ONE (21:21)
[2025-01-21] MEDS: OFIRMEV IV 1000 MG VIAL 0 MG/0 ML VIAL IV ONE (21:21)
[2025-01-21] MEDS: FENTANYL VIAL INJ 100 mcg ONE (21:21)
[2025-01-21] MEDS: DECADRON INJ ONE (21:22)
[2025-01-21] MEDS: REGLAN INJ 10 MG VIAL ONE (21:22)
[2025-01-21] MEDS: VERSED ONE (21:22)
[2025-01-21] MEDS: ZOFRAN INJ 4 MG VIAL ONE (21:22)
[2025-01-21] MEDS: TRANSDERM-SCOP TD ONE (21:23)
[2025-01-21] MEDS: ROBINUL ONE (21:23)
[2025-01-21] MEDS: OFIRMEV IV 1000 MG VIAL 1,000 MG/100 ML VIAL IV ONE (21:25)
[2025-01-21] MEDS: EPHEDRINE SULFATE INJ ONE (21:25)
[2025-01-22 05:46] LABS: BASOPHILS # (AUTO) 0.1 X10^3/uL (0.0-0.1); BASOPHILS % (AUTO) 0.5 % (0.2-1.0); EOSINOPHILS % (AUTO) 0.1 % (0.9-2.9); HEMATOCRIT 39.6 % (36.0-47.0); HEMOGLOBIN 13.5 g/dL (12.0-16.0); LYMPHOCYTES # (AUTO) 1.1 X10^3/uL (1.3-2.9); LYMPHOCYTES % (AUTO) 8.9 % (21.0-51.0); MEAN CORPUSCULAR HEMOGLOBIN 31.6 pg (27.0-34.0); MONOCYTES # (AUTO) 0.4 x10^3/uL (0.3-0.8); MONOCYTES % (AUTO) 3.2 % (0.0-13.0); NEUTROPHILS % (AUTO) 87.3 % (42.0-75.0); PLATELET COUNT 248 X10^3/uL (150.0-450.0); RED BLOOD COUNT 4.26 X10^6/uL (3.5-5.4); RED CELL DISTRIBUTION WIDTH 14.1 % (11.6-16.5); WHITE BLOOD COUNT 12.6 X10^3/uL (3.6-10.0)
[2025-01-22 06:02] LABS: ALANINE AMINOTRANSFERASE 42 Units/L (12-78); ALBUMIN 3.1 g/dL (3.4-5.0); ALKALINE PHOSPHATASE 72 Units/L (46-116); ASPARTATE AMINO TRANSFERASE 20 Units/L (15-37); BLOOD UREA NITROGEN 11 mg/dL (7-18); CALCIUM 9.3 mg/dL (8.5-10.1); CARBON DIOXIDE 28.1 mmol/L (21-32); CHLORIDE 108 mmol/L (98-107); COR NA(FOR HYPERGLY) 144 mmol/L (136-145); CREATININE 0.56 mg/dL (0.55-1.02); GLUCOSE 116 mg/dL (65-99); POTASSIUM 3.9 mmol/L (3.5-5.1); SODIUM 144 mmol/L (136-145); TOTAL PROTEIN 6.7 g/dL (6.4-8.2); eGFR NON BLACK RACES > 60 (>60)
[2025-01-22] MEDS: DIOVAN TAB 160 MG PO SCH (08:46)
[2025-01-22] MEDS: DIFLUCAN 200 MG IV PREMIX* 200 MG/100 ML BAG IV SCH (09:47)
[2025-01-22] MEDS: COLACE CAP 100 MG PO SCH (23:56)
[2025-01-23 03:51] VITALS: RESP 18
[2025-01-23 05:30] LABS: BASOPHILS % (AUTO) 0.3 % (0.2-1.0); EOSINOPHILS # (AUTO) 0.3 x10^3/uL (0.0-0.2); EOSINOPHILS % (AUTO) 2.2 % (0.9-2.9); HEMATOCRIT 40.7 % (36.0-47.0); HEMOGLOBIN 13.8 g/dL (12.0-16.0); LYMPHOCYTES # (AUTO) 1.9 X10^3/uL (1.3-2.9); LYMPHOCYTES % (AUTO) 13.6 % (21.0-51.0); MEAN CORPUSCULAR HEMOGLOBIN 31.7 pg (27.0-34.0); MEAN CORPUSCULAR HGB CONC 33.8 g/dL (33.0-35.0); MEAN CORPUSCULAR VOLUME 93.6 fL (80.0-100.0); MEAN PLATELET VOLUME 8.1 fL (7.4-11.0); MONOCYTES # (AUTO) 0.7 x10^3/uL (0.3-0.8); MONOCYTES % (AUTO) 4.8 % (0.0-13.0); NEUTROPHILS # (AUTO) 11.2 x10^3/uL (2.2-4.8); NEUTROPHILS % (AUTO) 79.1 % (42.0-75.0); PLATELET COUNT 247 X10^3/uL (150.0-450.0); RED BLOOD COUNT 4.35 X10^6/uL (3.5-5.4); RED CELL DISTRIBUTION WIDTH 14.5 % (11.6-16.5); WHITE BLOOD COUNT 14.2 X10^3/uL (3.6-10.0)
[2025-01-23 05:46] LABS: ALANINE AMINOTRANSFERASE 33 Units/L (12-78); ALKALINE PHOSPHATASE 67 Units/L (46-116); ASPARTATE AMINO TRANSFERASE 16 Units/L (15-37); BLOOD UREA NITROGEN 12 mg/dL (7-18); CALCIUM 8.6 mg/dL (8.5-10.1); CARBON DIOXIDE 26.6 mmol/L (21-32); CHLORIDE 108 mmol/L (98-107); COR CA(FOR HYPOALB) 9.4 mg/dL (8.5-10.1); COR NA(FOR HYPERGLY) 144 mmol/L (136-145); CREATININE 0.65 mg/dL (0.55-1.02); GLUCOSE 112 mg/dL (65-99); POTASSIUM 3.4 mmol/L (3.5-5.1); SODIUM 144 mmol/L (136-145); TOTAL PROTEIN 6.4 g/dL (6.4-8.2); eGFR NON BLACK RACES > 60 (>60)
[2025-01-23] MEDS ORDERED: CONSULT PHARMACY - POTASSIUM & MAGNESIUM XX SCH (07:00)
--- NOTE | 2025-01-23 07:33 | RAD ---
EXAM:AP chestHISTORY:Cough SOB post cholecystectomyCOMPARISON:01/20/2025FINDINGS: Heart size continues normal with no evidence for developing pneumonia, atelectasis, CHF or pleural fluid.IMPRESSION:No acute chest findings.THIS IS AN ELECTRONICALLY VERIFIED FINAL REPORT01/23/2025 7:30 AM - Electronically signed by Collin Koroma MD
[2025-01-23] MEDS: K-DUR TAB 20 MEQ PO SCH (09:49)
[2025-01-23] MEDS: MAG-OX TAB PO SCH (09:50)
--- NOTE | 2025-01-23 09:56 | DR.PROGNOT ---
HOSPITAL PROGRESS NOTE Progress Note for Day of: Progress Note Date: 01/23/25 Chief Complaint Chief Complaint: feeling better today . tolerating diet well . no nausea or vomiting . WBC 14,2 Past Medical Family Social History Past Med/Fam/Surg Hx: No changes since H&P Allergies: Allergies Sulfa (Sulfonamide Antibiotics) [SULFA] Allergy (Verified 01/20/25 12:21) Review Of Systems ROS: No change since H&P Vital Signs Vital Signs: Vital Signs Temperature 98.2 F Temperature 97.8 F Pulse Rate [Brachial] 63 Pulse Rate [Brachial] 59 Respiratory Rate 18 Respiratory Rate 18 Respiratory Rate 18 Blood Pressure [Left Arm] 183/86 Blood Pressure [Left Arm] 162/82 O2 Sat by Pulse Oximetry 96 O2 Sat by Pulse Oximetry 96 Physical Exam Oriented: Normal Eyes: Normal Nose: Normal Throat: Dry Cardiovascular: Normal GI: Tenderness: Diffuse (mild diffuse tendernes . BS+) Skin: Decreased Turgur Musculoskeletal: Right, Hand, Back:Lumbar, Tender, Motor Deficit, Sensory Deficit and Instability Psychiatric: Depression Mood Description: Depressed Speech Pattern: Clear and Appropriate Laboratory and Diagnostics 01/23/25 04:55 01/23/25 04:55 Labs: 01/20/25 12:53 Blood Blood Culture - Preliminary 01/20/25 12:42 Blood Blood Culture - Preliminary 01/20/25 14:00 Urine,Catheterized Urine Culture - Final Laboratory WBC 14.2 X10^3/uL (3.6-10.0) H 01/23/25 04:55 RBC 4.35 X10^6/uL (3.5-5.4) 01/23/25 04:55 Hgb 13.8 g/dL (12.0-16.0) 01/23/25 04:55 Hct 40.7 % (36.0-47.0) 01/23/25 04:55 MCV 93.6 fL (80.0-100.0) 01/23/25 04:55 MCH 31.7 pg (27.0-34.0) 01/23/25 04:55 MCHC 33.8 g/dL (33.0-35.0) 01/23/25 04:55 RDW 14.5 % (11.6-16.5) 01/23/25 04:55 Plt Count 247 X10^3/uL (150.0-450.0) 01/23/25 04:55 MPV 8.1 fL (7.4-11.0) 01/23/25 04:55 Neut % (Auto) 79.1 % (42.0-75.0) H 01/23/25 04:55 Lymph % (Auto) 13.6 % (21.0-51.0) L 01/23/25 04:55 [place] % (Auto) 4.8 % (0.0-13.0) 01/23/25 04:55 Eos % (Auto) 2.2 % (0.9-2.9) 01/23/25 04:55 Baso % (Auto) 0.3 % (0.2-1.0) 01/23/25 04:55 Neut # (Auto) 11.2 x10^3/uL (2.2-4.8) H 01/23/25 04:55 Lymph # (Auto) 1.9 X10^3/uL (1.3-2.9) 01/23/25 04:55 [place] # (Auto) 0.7 x10^3/uL (0.3-0.8) 01/23/25 04:55 Eos # (Auto) 0.3 x10^3/uL (0.0-0.2) H 01/23/25 04:55 Baso # (Auto) 0.0 X10^3/uL (0.0-0.1) 01/23/25 04:55 Absolute Nucleated RBC 0.0 /100WBC 01/23/25 04:55 PT 13.9 SECONDS (11.8-14.3) 01/21/25 06:55 INR Target Range - 01/21/25 06:55 INR 1.09 (0.8-1.3) 01/21/25 06:55 APTT 30.5 SECONDS (22.9-36.5) 01/21/25 06:55 PTT Comment - 01/21/25 06:55 Sodium 144 mmol/L (136-145) 01/23/25 04:55 Corrected Sodium 144 mmol/L (136-145) 01/23/25 04:55 Potassium 3.4 mmol/L (3.5-5.1) L 01/23/25 04:55 Chloride 108 mmol/L (98-107) H 01/23/25 04:55 Carbon Dioxide 26.6 mmol/L (21-32) 01/23/25 04:55 BUN 12 mg/dL (7-18) 01/23/25 04:55 Creatinine 0.65 mg/dL (0.55-1.02) 01/23/25 04:55 Est GFR (MDRD) Af Amer > 60 (>60) 01/23/25 04:55 Est GFR (MDRD) Non-Af > 60 (>60) 01/23/25 04:55 Glucose 112 mg/dL (65-99) H 01/23/25 04:55 POC Glucose (mg/dL) 118 mg/dL (65-99) H 01/23/25 05:37 Calcium 8.6 mg/dL (8.5-10.1) 01/23/25 04:55 Corrected Calcium 9.4 mg/dL (8.5-10.1) 01/23/25 04:55 Magnesium 1.8 mg/dL (2.0-2.9) L 01/23/25 04:55 Total Bilirubin 0.40 mg/dL (0.2-1.0) 01/23/25 04:55 AST 16 Units/L (15-37) 01/23/25 04:55 ALT 33 Units/L (12-78) 01/23/25 04:55 Alkaline Phosphatase 67 Units/L (46-116) 01/23/25 04:55 Total Protein 6.4 g/dL (6.4-8.2) 01/23/25 04:55 Albumin 3.0 g/dL (3.4-5.0) L 01/23/25 04:55 Globulin 3.4 g/dL (2.5-4.5) 01/23/25 04:55 Albumin/Globulin Ratio 0.9 Ratio (1.1-2.1) L 01/23/25 04:55 Lipase 52 Units/L (16-77) 01/20/25 12:42 Specimen Type Catherized urine 01/20/25 14:00 Urine Color Pale yellow (YELLOW) 01/20/25 14:00 Urine Appearance Hazy (CLEAR) 01/20/25 14:00 Urine pH 6.0 (5.0 - 8.0) 01/20/25 14:00 Ur Specific [place] 1.015 (1.000-1.030) 01/20/25 14:00 Urine Protein 2+ (NEGATIVE) 01/20/25 14:00 Urine Glucose (UA) 4+ (NEGATIVE) 01/20/25 14:00 Urine Ketones Negative (NEGATIVE) 01/20/25 14:00 Urine Blood 3+ (NEGATIVE) 01/20/25 14:00 Urine Nitrite Negative (NEGATIVE) 01/20/25 14:00 Urine Bilirubin Negative (NEGATIVE) 01/20/25 14:00 Urine Urobilinogen Normal (NORMAL) 01/20/25 14:00 Ur Leukocyte Esterase 3+ (NEGATIVE) 01/20/25 14:00 Urine RBC 5-10 /HPF (0-3) A 01/20/25 14:00 Urine WBC Tntc /HPF (0-5) A 01/20/25 14:00 Ur Squamous Epith Cells Rare /HPF (NEGATIVE) 01/20/25 14:00 Urine Bacteria Trace /HPF (NEGATIVE) 01/20/25 14:00 Urine Yeast Few /HPF (NEGATIVE) 01/20/25 14:00 Ur Culture Indicated? Yes/culture set up 01/20/25 14:00 Assessment and Plan 1: acute appendicitis , s/p appendectomy . could be discharged on Cipro 500 BID . small meals , f/u in 10 days . Problem Patient Problems: Patient Problems (Updated 01/20/25 @ 14:59 by Background Daemon) Acute appendicitis (Acute) K35.80 Acute UTI (Acute) N39.0
[2025-01-23 12:20] VITALS: PULSE 70
--- NOTE | 2025-01-23 13:52 | CT ---
EXAM: BRAIN W/O CON HISTORY: AMS; COMPARISON: None TECHNIQUE: CT of the head obtained without IV contrast. Sagittal and coronal reformatted images were performed. Dose reduction techniques including Automated Exposure Control (AEC) and adjustment of mA and kV were utilized. FINDINGS: No evidence of acute territorial infarct. No acute intracranial hemorrhage. No evidence of intracrani al mass or midline shift. No hydrocephalus. No abnormal intra or extra-axial fluid collections. Chron ic small vessel ischemic changes. The calvaria is intact. The bilateral mastoid air cells and visualized paranasal sinuses are well pne umatized. The bilateral orbits are unremarkable. IMPRESSION: No acute intracranial findings. THIS IS AN ELECTRONICALLY VERIFIED FINAL REPORT 01/23/2025 1:49 PM - Electronically signed by Emiliano Kim MD
[2025-01-23 16:04] VITALS: BP 104/66; TEMP 97.4; O2SAT 94
== END 2025-01-23 17:05 | disposition home or self-care (01) ==
LOC: ER 12:04 → MED/SURG 12:04
PROVIDERS: ADMIT Internal Medicine; ATTEND Internal Medicine
PROC: APPYLAP (ICD-10-PCS; 2025-01-21 07:45)
DX: R10.31 Right lower quadrant pain; K21.9 Gastro-esophageal reflux disease without esophagitis; E78.5 Hyperlipidemia, unspecified; I10 Essential (primary) hypertension; G89.18 Other acute postprocedural pain; E03.8 Other specified hypothyroidism; E83.42 Hypomagnesemia; K35.890 Other acute appendicitis without perforation or gangrene; K66.0 Peritoneal adhesions (postprocedural) (postinfection); Z01.810 Encounter for preprocedural cardiovascular examination; K59.09 Other constipation; R06.02 Shortness of breath; R41.82 Altered mental status, unspecified; E11.65 Type 2 diabetes mellitus with hyperglycemia

== ENCOUNTER 2025-06-14 08:58 | Inpatient (IN) ==
--- NOTE | 2025-06-14 09:13 | EKG ---
Test Reason : ams Blood Pressure : */* mmHG Vent. Rate : 95 BPM Atrial Rate : 95 BPM P-R Int : 154 ms QRS Dur : 72 ms QT Int : 336 ms P-R-T Axes : 50 0 62 degrees QTc Int : 422 ms Normal sinus rhythm Septal infarct (cited on or before 20-JAN-2025) Abnormal ECG When compared with ECG of 01-MAR-2025 19:09, Questionable change in initial forces of Septal leads T wave inversion no longer evident in Lateral leads Confirmed by Samy Johnson MD ([id number]) on 06/14/2025 10:44:14 AM Referred By: Confirmed By: Samy Johnson MD
[2025-06-14 09:34] LABS: MEAN PLATELET VOLUME 7.1 fL (7.4-11.0); RED CELL DISTRIBUTION WIDTH 14.0 % (11.6-16.5)
[2025-06-14] MEDS: NS 1,000 ML IV 1,000 ML IV ONE (09:45)
[2025-06-14] MEDS: ZOSYN VIAL 3.375 GRAMS 3.375 G in NS 100 ML IV 100 ML IV SCH (09:45)
[2025-06-14 09:46] LABS: COR CA(FOR HYPOALB) 10.1 mg/dL (8.5-10.1); COR NA(FOR HYPERGLY) 138 mmol/L (136-145); CREATININE 0.93 mg/dL (0.55-1.02); eGFR NON BLACK RACES > 60 (>60)
[2025-06-14 09:52] LABS: BAND NEUTROPHILS % 11 % (0-10); PLATELET MORPHOLOGY COMMENT NORMAL (NORMAL)
--- NOTE | 2025-06-14 10:11 | CT ---
EXAM: CT HEAD WITHOUT CONTRAST HISTORY: AMS; COMPARISON: 5. TECHNIQUE: Axial CT images were obtained through the brain without contrast. All CT scans at this facility use dose modulation, iterative reconstruction, and/or weight based dosing when appropriate to reduce radiation dose to as low as reasonably achievable. FINDINGS: No acute intracranial hemorrhage or extra-axial fluid collection. No mass effect or midline shift. Mild cerebral atrophy and chronic microvascular white matter disease. No regional areas of gillespie-white differentiation loss. Intact calvarium. Paranasal sinuses and mastoid air cells are well-aerated. IMPRESSION: No acute intracranial findings. THIS IS AN ELECTRONICALLY VERIFIED FINAL REPORT 06/14/2025 10:08 AM - Electronically signed by Jw Duran MD
[2025-06-14] MEDS: TYLENOL 500 MG TAB EXTRA STRENGTH PO ONE (10:14)
[2025-06-14] MEDS: MAG-OX TAB PO ONE (10:14)
[2025-06-14 10:40] LABS: APPEARANCE,URINE CLOUDY (CLEAR); BLOOD/HEMOGLOBIN,URINE 5+ (NEGATIVE); LEUKOCYTE ESTERASE ,URINE 3+ (NEGATIVE); NITRITES,URINE POSITIVE (NEGATIVE)
[2025-06-14 10:49] LABS: SQUAMOUS EPITHELIAL CELL,UR RARE /HPF (NEGATIVE)
[2025-06-14 10:50] LABS: YEAST,URINE FEW /HPF (NEGATIVE)
[2025-06-14] MEDS: MORPHINE SULFATE INJ 2 MG INJ IVP ONE (11:17)
[2025-06-14] MEDS: TORADOL 30 MG VIAL IVP ONE (11:19)
--- NOTE | 2025-06-14 14:10 | DR.FBACK ---
HPI Time Seen Time Seen by Provider: 06/14/25 09:03 PCP Primary Care Physician: HARRY Walters HPI Comment HPI Comment: Patient with dysuria for 3 weeks. Patient states it has been on and off since January and has been treated on multiple occasions. Urine culture was performed on but has not gotten antibiotics. Patient's was concerned that she might be a little bit altered mental status or confused earlier today but patient states she has an really felt confused and she is alert and oriented x 3 at this time with no sign of confusion. She does have history of back injuries and surgeries that have resulted in her being wheelchair-bound and incontinent using diapers. Patient does complain of fever and actually has 1 at this time. Complaint Chief Complaint:: states that she has been having trouble with and painful urination for about 3 weeks now. he states she has been having AMS but has gotten worse the past two days. pt also c/o lower back pain. They went to Veronica's office on and they took a urine sample to culture it but they have not heard back for results. COVID-19 Coronavirus risk:travel/contact w/high risk person: No Has patient experienced Coronavirus symptoms: No Source History Provided: Patient, Significant Other and EMS Mode of Arrival Mode of Arrival: Stretcher Timing Onset of Chief Complaint: 05/24/25 PMH PMH Past Medical History: Yes Past Medical History: Depression, Diabetes, Dyslipidemia, GERD, Hypertension, Hypothyroidism, Kidney Stones and Cancer Past Medical History Comment: breast cancer, spinal cord damage Past Surgical History: Yes Surgical History: Appendectomy, Cholecystectomy, Mastectomy and Ortho Surgery Past Surgical History Comment: multiple spinal surgeries, partial hysterectomy Family History History of Family Medical Conditions: Yes Family Medical History: Cancer, [place], Coronary Artery Disease and Hypertension Social History Does patient currently use any type of tobacco product: No Have you used tobacco products in the last 12 months: No Type of Tobacco Use: None Alcohol Use: None Do you use any recreational Drugs:: No Lives With: Spouse Lives Where: Home Travel Risk Coronavirus risk:travel/contact w/high risk person: No Has patient experienced Coronavirus symptoms: No Infectious screening Have you traveled outside the country in the last 6 months?: No Isolation: Standard ROS Review of Systems Constitutional: See HPI and Fever Eyes: No Symptoms Reported ENTM: No Symptoms Reported Respiratoy: No Symptoms Reported Cardiovascular: No Symptoms Reported Gastrointestinal/Abdominal: No Symptoms Reported Genitourinary: See HPI, Dysuria and Frequency; negative Discharge, Hematuria or Pain Neurological: No Symptoms Reported Musculoskeletal: No Symptoms Reported Integumentary: No Symptoms Reported Hematologic/Lymphatic: No Symptoms Reported Endocrine: No Symptoms Reported Psychiatric: No Symptoms Reported All Other Systems: Reviewed and Negative PE Vitals Vital Signs: Temp Pulse Resp BP Pulse Ox O2 Del Method 06/14/25 14:30 80 97 06/14/25 14:30 130/63 06/14/25 14:15 80 96 06/14/25 14:00 77 96 06/14/25 14:00 99/57 06/14/25 13:45 78 96 06/14/25 13:30 80 94 L 06/14/25 13:30 91/62 06/14/25 13:15 80 94 L 06/14/25 13:00 93/52 06/14/25 13:00 81 94 L 06/14/25 12:59 98.5 F 06/14/25 12:46 79 95 06/14/25 12:30 82 95 06/14/25 12:30 92/50 06/14/25 12:15 81 95 06/14/25 12:00 86 97 06/14/25 12:00 102/52 06/14/25 11:49 18 06/14/25 11:45 85 97 06/14/25 11:30 100/52 06/14/25 11:30 85 97 06/14/25 11:19 18 06/14/25 11:15 88 98 06/14/25 11:14 18 06/14/25 11:11 100/55 06/14/25 11:11 89 99 06/14/25 11:00 87 99 06/14/25 11:00 103/50 06/14/25 10:50 84 99 06/14/25 10:50 101.5 F H 113/53 06/14/25 10:14 18 06/14/25 10:00 102.1 F H 18 06/14/25 09:34 96 H 93 L 06/14/25 09:30 97 H 100 06/14/25 09:21 101.0 F H 97 H 18 145/65 97 Room Air 06/14/25 09:15 96 H 97 06/14/25 09:05 93 H 98 General Limitations: No Limitations General Appearance: Alert and In No Apparent Distress Head Head Exam: Normal Inspection Eyes Eye exam: Normal Appearance ENT ENT Exam: Normal Exam Chest Chest Inspection: Normal Inspection Respiratory Respiratory Exam: Normal Lung Sounds Bilat Cardiovascular Cardiovascular Exam: Regular Rate and Normal Rhythm Abdominal Exam Abdominal Exam: Normal Inspection, Normal Bowel Sounds and Soft; negative Distention, Tenderness, Guarding, Rebound or Rigidity Genitourinary External Exam: Female: Deferred : Speculum Exam (Female): Deferred : Bimanual Exam (female): Deferred Extremities Extremities Exam: Normal Inspection Back Back Exam: Normal Inspection Neurological Neurological Exam: Alert and Oriented X3 Psychiatric Psychiatric Exam: Normal Affect and Normal Mood Skin Skin Exam: Warm, Dry, Intact and Normal Color COURSE Treatment Treatment: Patient has been slightly hypotensive since in the ER, with fever and UTI on urinalysis. Discussed results of workup with patient. No sign of acute issues on CT of the head. Consultation Consultation Comments: Discussed case with Dr. Baum and he is agreeable to admission. Critical Care Notes Total Time (mins): 23 Critical Diagnosis: UTI with altered mental status and fever. Critical Interventions: Patient had thorough workup with CT of the head. Ruled out stroke. Fluids and IV antibiotics were initiated for concern of possible sepsis but she ended up being negative for sepsis. Time spent establishing diagnosis and ruling out CVA versus sepsis and coordinating care with hospitalist for admission. Hypotension was addressed with fluids. Since blood pressure has not improved we will admit for observation. ROR Labs Reviewed Laboratory Results Reviewed?: Yes 06/14/25 09:20 06/14/25 09:20 Laboratory: WBC 12.1 X10^3/uL (3.6-10.0) H 06/14/25 09:20 RBC 4.32 X10^6/uL (3.5-5.4) 06/14/25 09:20 Hgb 13.3 g/dL (12.0-16.0) 06/14/25 09:20 Hct 40.1 % (36.0-47.0) 06/14/25 09:20 MCV 92.7 fL (80.0-100.0) 06/14/25 09:20 MCH 30.7 pg (27.0-34.0) 06/14/25 09:20 MCHC 33.2 g/dL (33.0-35.0) 06/14/25 09:20 RDW 14.0 % (11.6-16.5) 06/14/25 09:20 Plt Count 229 X10^3/uL (150.0-450.0) 06/14/25 09:20 Plt Count Comment Adequate (ADEQUATE) 06/14/25 09:20 MPV 7.1 fL (7.4-11.0) L 06/14/25 09:20 Neut % (Auto) 91.6 % (42.0-75.0) H 06/14/25 09:20 Lymph % (Auto) 3.2 % (21.0-51.0) L 06/14/25 09:20 [place] % (Auto) 4.9 % (0.0-13.0) 06/14/25 09:20 Eos % (Auto) 0.2 % (0.9-2.9) L 06/14/25 09:20 Baso % (Auto) 0.1 % (0.2-1.0) L 06/14/25 09:20 Neut # (Auto) 11.1 x10^3/uL (2.2-4.8) H 06/14/25 09:20 Lymph # (Auto) 0.4 X10^3/uL (1.3-2.9) L 06/14/25 09:20 [place] # (Auto) 0.6 x10^3/uL (0.3-0.8) 06/14/25 09:20 Eos # (Auto) 0.0 x10^3/uL (0.0-0.2) 06/14/25 09:20 Baso # (Auto) 0.0 X10^3/uL (0.0-0.1) 06/14/25 09:20 Absolute Nucleated RBC 0.0 /100WBC 06/14/25 09:20 Total Counted 100 06/14/25 09:20 Neutrophils % (Manual) 75 % (39-76) 06/14/25 09:20 Band Neutrophils % 11 % (0-10) H 06/14/25 09:20 Lymphocytes % (Manual) 10 % (13-43) L 06/14/25 09:20 Monocytes % (Manual) 4 % (4-9) 06/14/25 09:20 Plt Morphology Comment Normal (NORMAL) 06/14/25 09:20 RBC Morphology Normal (NORMAL) 06/14/25 09:20 Sodium 137 mmol/L (136-145) 06/14/25 09:20 Corrected Sodium 138 mmol/L (136-145) 06/14/25 09:20 Potassium 4.2 mmol/L (3.5-5.1) 06/14/25 09:20 Chloride 100 mmol/L (98-107) 06/14/25 09:20 Carbon Dioxide 30.4 mmol/L (21-32) 06/14/25 09:20 BUN 17 mg/dL (7-18) 06/14/25 09:20 Creatinine 0.93 mg/dL (0.55-1.02) 06/14/25 09:20 Est GFR (MDRD) Af Amer > 60 (>60) 06/14/25 09:20 Est GFR (MDRD) Non-Af > 60 (>60) 06/14/25 09:20 Glucose 143 mg/dL (65-99) H 06/14/25 09:20 POC Glucose (mg/dL) 140 mg/dL (65-99) H 06/14/25 09:25 Lactic Acid 1.4 mmol/L (0.4-2.0) 06/14/25 09:20 Calcium 9.1 mg/dL (8.5-10.1) 06/14/25 09:20 Corrected Calcium 10.1 mg/dL (8.5-10.1) 06/14/25 09:20 Magnesium 1.6 mg/dL (2.0-2.9) L 06/14/25 09:20 Total Bilirubin 0.60 mg/dL (0.2-1.0) 06/14/25 09:20 AST 21 Units/L (15-37) 06/14/25 09:20 ALT 25 Units/L (12-78) 06/14/25 09:20 Alkaline Phosphatase 89 Units/L (46-116) 06/14/25 09:20 Total Protein 8.7 g/dL (6.4-8.2) H 06/14/25 09:20 Albumin 2.8 g/dL (3.4-5.0) L 06/14/25 09:20 Globulin 5.9 g/dL (2.5-4.5) H 06/14/25 09:20 Albumin/Globulin Ratio 0.5 Ratio (1.1-2.1) L 06/14/25 09:20 Specimen Type Catherized urine 06/14/25 10:29 Urine Color Yellow (YELLOW) 06/14/25 10: Urine Appearance Cloudy (CLEAR) 06/14/25 10: Urine pH 6.0 (5.0 - 8.0) 06/14/25 10: Ur Specific [place] 1.020 (1.000-1.030) 06/14/25 10: Urine Protein 3+ (NEGATIVE) 06/14/25 10: Urine Glucose (UA) 4+ (NEGATIVE) 06/14/25 10: Urine Ketones 3+ (NEGATIVE) 06/14/25 10: Urine Blood 5+ (NEGATIVE) 06/14/25 10: Urine Nitrite Positive (NEGATIVE) 06/14/25 10: Urine Bilirubin Negative (NEGATIVE) 06/14/25 10:29 Urine Urobilinogen Normal (NORMAL) 06/14/25 10:29 Ur Leukocyte Esterase 3+ (NEGATIVE) 06/14/25 10: Urine RBC 20-30 /HPF (0-3) A 06/14/25 10:29 Urine WBC 20-30 /HPF (0-5) A 06/14/25 10:29 Ur Squamous Epith Cells Rare /HPF (NEGATIVE) 06/14/25 10: Amorphous Sediment Trace /HPF (NEGATIVE) 06/14/25 10: Urine Bacteria 1+ /HPF (NEGATIVE) 06/14/25 10:29 Urine Yeast Few /HPF (NEGATIVE) 06/14/25 10:29 Ur Culture Indicated? Yes/culture set up 06/14/25 10:29 Urine Opiates Screen Positive (NEG=<300) A 06/14/25 10: Urine Methadone Screen Negative (NEG=<300) 06/14/25 10:29 Ur Barbiturates Screen Negative (NEG=<200) 06/14/25 10:29 Ur Phencyclidine Scrn Negative (NEG=<25) 06/14/25 10: Ur Amphetamines Screen Negative (NEG=<1000) 06/14/25 10:29 U Benzodiazepines Scrn Negative (NEG=<200) 06/14/25 10:29 Urine Cocaine Screen Negative (NEG=<300) 06/14/25 10:29 U Marijuana (THC) Screen Negative (NEG=<50) 06/14/25 10:29 Other Results Comments: Name: CEASAR LYONS : 1950 Sex: F Location: ER Order Number(s): [id number] Procedure(s):BRAIN CT W/O CON Ordering Physician: Tavon Gooden [facility] Service Date: 06/14/25 Service Time: 904 EXAM: CT HEAD WITHOUT CONTRAST HISTORY: AMS; COMPARISON: 5. TECHNIQUE: Axial CT images were obtained through the brain without contrast. All CT scans at this facility use dose modulation, iterative reconstruction, and/or weight based dosing when appropriate to reduce radiation dose to as low as reasonably achievable. FINDINGS: No acute intracranial hemorrhage or extra-axial fluid collection. No mass effect or midline shift. Mild cerebral atrophy and chronic microvascular white matter disease. No regional areas of gillespie-white differentiation loss. Intact calvarium. Paranasal sinuses and mastoid air cells are well-aerated. IMPRESSION: No acute intracranial findings. THIS IS AN ELECTRONICALLY VERIFIED FINAL REPORT 06/14/2025 10:08 AM - Electronically signed by Jw Duran MD Opioid Opioid Risk Tool Age (David box if 16-45): No History of Preadolescent Sexual Abuse: No Total: 0 Total Score Risk Category: Low Risk Copyright: Bertram SAMANIEGO predicting aberrant behaviors Discharge Plan Diagnosis Discharge Problem: Hypotension UTI (urinary tract infection) Qualifiers: Urinary tract infection type: site unspecified Hematuria presence: with hematuria Qualified Code(s): N39.0 - Urinary tract infection, site not specified Discharge Plan Patient Disposition: ADMITTED INPATIENT Condition: Stable Orders to Discharge Patient Discharge Orders: Transfer (Routine); Ordered 06/14/25 Ordered By: Tavon Gooden
[2025-06-14] MEDS: LIORESAL PO ONE (14:39)
[2025-06-14] MEDS ORDERED: TYLENOL 500 MG TAB EXTRA STRENGTH PO PRN (15:46)
[2025-06-14] MEDS: NS 1,000 ML IV 1,000 ML IV SCH (16:37)
[2025-06-14] MEDS: NORCO 10/325 TAB PO SCH (16:38)
[2025-06-14] MEDS: MORPHINE SULFATE INJ 2 MG INJ IVP PRN (20:14)
[2025-06-14] MEDS: ROCEPHIN VIAL 1 GRAM 1 G in NS 100 ML IV 100 ML IV SCH (20:15)
[2025-06-14] MEDS: LIORESAL PO SCH (21:07)
[2025-06-14] MEDS: NEURONTIN TAB 600 MG PO SCH (21:07)
[2025-06-15 07:12] LABS: COR CA(FOR HYPOALB) 10.2 mg/dL (8.5-10.1); COR NA(FOR HYPERGLY) 137 mmol/L (136-145); CREATININE 0.96 mg/dL (0.55-1.02); eGFR NON BLACK RACES > 60 (>60)
[2025-06-15 07:22] LABS: MEAN PLATELET VOLUME 7.1 fL (7.4-11.0); RED CELL DISTRIBUTION WIDTH 14.2 % (11.6-16.5)
[2025-06-15] MEDS: TYLENOL 325 MG TAB PO PRN (07:23)
[2025-06-15] MEDS: MAG-OX TAB ONE (08:48)
[2025-06-15] MEDS: NS 1,000 ML IV 1,000 ML ONE (08:48)
[2025-06-15] MEDS: BUTT CREAM (COMPOUND) ONE (08:49)
[2025-06-15] MEDS: PHARMACY CONSULT - MEROPENEM XX SCH (08:49)
--- NOTE | 2025-06-15 09:31 | RAD ---
EXAM: KUB HISTORY: hx constipation; COMPARISON: None FINDINGS: Kate luation of the abdomen demonstrates a nonobstructive bowel gas pattern. No evidence of pneumoperitoneum. No pathologic soft tissue calcification. No acute osseous abnormality. Posterior spinal fusion hardware. IMPRESSION: No acute abdominal process. THIS IS AN ELECTRONICALLY VERIFIED FINAL REPORT 06/15/2025 9:28 AM - Electronically signed by Emiliano Kim MD
[2025-06-15] MEDS: ASPIRIN EC 81 MG PO SCH (10:16)
[2025-06-15] MEDS: ZEBETA TAB 5 MG PO SCH (10:16)
[2025-06-15] MEDS: MERREM VIAL 1 G in NS 100 ML IV 100 ML IV SCH (10:22)
[2025-06-15 11:40] VITALS: BMI 26.6
--- NOTE | 2025-06-15 13:44 | DR.H&P ---
H&P History & Physical for Day of: H&P Date: 06/14/25 Chief Complaint Chief Complaint: AMS, UTI History of Present Illness History of Present Illness: Patient with dysuria for 3 weeks. Patient states it has been on and off since January and has been treated on multiple occasions. Urine culture was performed on but has not gotten antibiotics. Patient's was concerned that she might be a little bit altered mental status or confused earlier today but patient states she has an really felt confused and she is alert and oriented x 3 at this time with no sign of confusion. She does have history of back injuries and surgeries that have resulted in her being wheelchair-bound and incontinent using diapers. Patient does complain of fever and actually has 1 at this time. Past Medical History Past Medical History: Depression, Diabetes, Dyslipidemia, GERD, Hypertension, Hypothyroidism, Kidney Stones and Cancer Past Surgical History Surgical History: Appendectomy, Cholecystectomy, Mastectomy and Ortho Surgery Family History Family Medical History: Cancer, [place], Coronary Artery Disease and Hypertension Social History Does patient currently use any type of tobacco product: No Have you used tobacco products in the last 12 months: No Type of Tobacco Use: None Does any household member use tobacco: No Alcohol Use: None Drug Use: None Medications Home Medications: Home Medications Medication Instructions Recorded Confirmed Type esomeprazole magnesium 40 mg 40 mg PO DAILY 10/23/12 0 06/14/25 History capsule,delayed release (Nexium) atorvastatin 20 mg tablet (Lipitor) 20 mg PO DAILY 06/14/25 History bisoprolol fumarate 5 mg tablet 5 mg PO DAILY 11/19/18 06/14/25 History venlafaxine 150 mg 150 mg PO DAILY 11/19/18 History capsule,extended release 24 hr (Effexor XR) baclofen 20 mg tablet 20 mg PO TID 01/20/25 History folic acid 1 mg tablet 1 mg PO DAILY 01/20/2506/14 History gabapentin 600 mg tablet 600 mg PO TID 01/20/2506/14 History hydrocodone 10 mg-acetaminophen 1 tab PO QID 01/20/25 06/14/25 History 325 mg tablet levothyroxine 100 mcg tablet 100 mcg PO DAILY 01/20/25 06/14/25 History (Synthroid) montelukast 10 mg tablet 10 mg PO DAILY 01/20/2506/01 History nystatin 100,000 unit/gram topical 1 applic topical BI D 01/20/25 06/14/25 History ointment quetiapine 50 mg tablet 50 mg PO QHS 01/20/25 History tirzepatide 5 mg/0.5 mL 5 mg subcut QWEEK 01/20/25 0 06/14/25 History subcutaneous pen injector (Bienvenido) valsartan 160 1 tab PO DAILY PRN 01/20/25 06/14/25 History mg-hydrochlorothiazide 12.5 mg tablet aspirin 81 mg tablet 81 mg PO QDAY 06/14/2506/14 History cholecalciferol (vitamin D3) 25 25 mcg PO QDAY 5 06/14/25 History mcg (1,000 unit) tablet (Vitamin D3) fexofenadine 180 mg tablet 180 mg PO QDAY 06/14/25 History sitagliptin phosphate 100 mg 100 mg PO QDAY 06/14/25 0 06/14/25 History tablet (Januvia) Allergies Allergies Allergy/AdvReac Type Severity Reaction Status Date / Time Sulfa (Sulfonamide Allergy Verified 03/01/25 19:55 Antibiotics) (SULFA) Labs 06/15/25 07:11 06/15/25 05:24 Labs: 06/14/25 10:29 Urine,Catheterized Urine Culture - Preliminary Laboratory WBC 15.7 X10^3/uL (3.6-10.0) H 06/15/25 07:11 RBC 4.53 X10^6/uL (3.5-5.4) 06/15/25 07:11 Hgb 13.9 g/dL (12.0-16.0) 06/15/25 07:11 Hct 42.1 % (36.0-47.0) 06/15/25 07:11 MCV 93.0 fL (80.0-100.0) 06/15/25 07:11 MCH 30.6 pg (27.0-34.0) 06/15/25 07:11 MCHC 32.9 g/dL (33.0-35.0) L 06/15/25 07:11 RDW 14.2 % (11.6-16.5) 06/15/25 07:11 Plt Count 189 X10^3/uL (150.0-450.0) 06/15/25 07:11 Plt Count Comment Adequate (ADEQUATE) 06/14/25 09:20 MPV 7.1 fL (7.4-11.0) L 06/15/25 07:11 Neut % (Auto) 83.4 % (42.0-75.0) H 06/15/25 07:11 Lymph % (Auto) 4.8 % (21.0-51.0) L 06/15/25 07:11 [place] % (Auto) 11.6 % (0.0-13.0) 06/15/25 07:11 Eos % (Auto) 0.1 % (0.9-2.9) L 06/15/25 07:11 Baso % (Auto) 0.1 % (0.2-1.0) L 06/15/25 07:11 Neut # (Auto) 13.1 x10^3/uL (2.2-4.8) H 06/15/25 07:11 Lymph # (Auto) 0.8 X10^3/uL (1.3-2.9) L 06/15/25 07:11 [place] # (Auto) 1.8 x10^3/uL (0.3-0.8) H 06/15/25 07:11 Eos # (Auto) 0.0 x10^3/uL (0.0-0.2) 06/15/25 07:11 Baso # (Auto) 0.0 X10^3/uL (0.0-0.1) 06/15/25 07:11 Absolute Nucleated RBC 0.1 /100WBC 06/15/25 07:11 Total Counted 100 06/14/25 09:20 Neutrophils % (Manual) 75 % (39-76) 06/14/25 09:20 Band Neutrophils % 11 % (0-10) H 06/14/25 09:20 Lymphocytes % (Manual) 10 % (13-43) L 06/14/25 09:20 Monocytes % (Manual) 4 % (4-9) 06/14/25 09:20 Plt Morphology Comment Normal (NORMAL) 06/14/25 09:20 RBC Morphology Normal (NORMAL) 06/14/25 09:20 Sodium 136 mmol/L (136-145) 06/15/25 05:24 Corrected Sodium 137 mmol/L (136-145) 06/15/25 05:24 Potassium 4.3 mmol/L (3.5-5.1) 06/15/25 05:24 Chloride 100 mmol/L (98-107) 06/15/25 05:24 Carbon Dioxide 25.0 mmol/L (21-32) 06/15/25 05:24 BUN 19 mg/dL (7-18) H 06/15/25 05:24 Creatinine 0.96 mg/dL (0.55-1.02) 06/15/25 05:24 Est GFR (MDRD) Af Amer > 60 (>60) 06/15/25 05:24 Est GFR (MDRD) Non-Af > 60 (>60) 06/15/25 05:24 Glucose 145 mg/dL (65-99) H 06/15/25 05:24 POC Glucose (mg/dL) 140 mg/dL (65-99) H 06/14/25 09:25 Lactic Acid 1.4 mmol/L (0.4-2.0) 06/14/25 09:20 Calcium 8.9 mg/dL (8.5-10.1) 06/15/25 05:24 Corrected Calcium 10.2 mg/dL (8.5-10.1) H 06/15/25 05:24 Magnesium 1.6 mg/dL (2.0-2.9) L 06/15/25 05:24 Total Bilirubin 0.40 mg/dL (0.2-1.0) 06/15/25 05:24 AST 25 Units/L (15-37) 06/15/25 05:24 ALT 25 Units/L (12-78) 06/15/25 05:24 Alkaline Phosphatase 103 Units/L (46-116) 06/15/25 05:24 Total Protein 8.6 g/dL (6.4-8.2) H 06/15/25 05:24 Albumin 2.4 g/dL (3.4-5.0) L 06/15/25 05:24 Globulin 6.2 g/dL (2.5-4.5) H 06/15/25 05:24 Albumin/Globulin Ratio 0.4 Ratio (1.1-2.1) L 06/15/25 05:24 Specimen Type Catherized urine 06/14/25 10:29 Urine Color Yellow (YELLOW) 06/14/25 10: Urine Appearance Cloudy (CLEAR) 06/14/25 10: Urine pH 6.0 (5.0 - 8.0) 06/14/25 10: Ur Specific [place] 1.020 (1.000-1.030) 06/14/25 10: Urine Protein 3+ (NEGATIVE) 06/14/25 10: Urine Glucose (UA) 4+ (NEGATIVE) 06/14/25 10: Urine Ketones 3+ (NEGATIVE) 06/14/25 10: Urine Blood 5+ (NEGATIVE) 06/14/25 10: Urine Nitrite Positive (NEGATIVE) 06/14/25 10: Urine Bilirubin Negative (NEGATIVE) 06/14/25 10: Urine Urobilinogen Normal (NORMAL) 06/14/25 10:29 Ur Leukocyte Esterase 3+ (NEGATIVE) 06/14/25 10: Urine RBC 20-30 /HPF (0-3) A 06/14/25 10:29 Urine WBC 20-30 /HPF (0-5) A 06/14/25 10:29 Ur Squamous Epith Cells Rare /HPF (NEGATIVE) 06/14/25 10: Amorphous Sediment Trace /HPF (NEGATIVE) 06/14/25 10:29 Urine Bacteria 1+ /HPF (NEGATIVE) 06/14/25 10:29 Urine Yeast Few /HPF (NEGATIVE) 06/14/25 10:29 Ur Culture Indicated? Yes/culture set up 06/14/25 10:29 Urine Opiates Screen Positive (NEG=<300) A 06/14/25 10: Urine Methadone Screen Negative (NEG=<300) 06/14/25 10:29 Ur Barbiturates Screen Negative (NEG=<200) 06/14/25 10:29 Ur Phencyclidine Scrn Negative (NEG=<25) 06/14/25 10:29 Ur Amphetamines Screen Negative (NEG=<1000) 06/14/25 10:29 U Benzodiazepines Scrn Negative (NEG=<200) 06/14/25 10: Urine Cocaine Screen Negative (NEG=<300) 06/14/25 10:29 U Marijuana (THC) Screen Negative (NEG=<50) 06/14/25 10:29 SARS-CoV-2 (PCR) Negative (NEGATIVE) 06/15/25 09:29 Influenza Type A (PCR) Negative (NEGATIVE) 06/15/25 09:29 Influenza Type B (PCR) Negative (NEGATIVE) 06/15/25 09:29 RSV (PCR) Negative (NEGATIVE) 06/15/25 09:29 Review of Systems Constitutional: Fever, Chills and Weakness Eyes: No Symptoms Reported ENT: No Symptoms Reported Cardiovascular: Edema Gastrointestinal: Abdominal Pain Genitourinary: Dysuria and Incontinence Musculoskeletal: Back Pain, Hand Pain, Leg Pain and Neck Pain Skin: No Symptoms Reported Neurological: Weakness and Confusion Physical Exam Vital Signs: Vital Signs Temperature 98.4 F Temperature 101.1 F Temperature 103.7 F Pulse Rate [Bilateral Radial] 77 Pulse Rate [Bilateral Radial] 99 Respiratory Rate 18 Respiratory Rate 18 Respiratory Rate 16 Respiratory Rate 20 Respiratory Rate 16 Respiratory Rate 16 Respiratory Rate 20 Respiratory Rate 20 Respiratory Rate 20 Blood Pressure [Left Calf] 93/52 Blood Pressure [Left Calf] 137/63 O2 Sat by Pulse Oximetry 91 O2 Sat by Pulse Oximetry 92 Oriented: Person Eyes: Normal Ear: Normal Nose: Normal Throat: Normal Respiratory: RLL Diminished and LLL Diminished Cardiovascular: Edema Auscultation: Bowel Sounds: Normal Palpation: Normal Tenderness: RLQ and Suprapubic Psychiatric: Anxiety Mood Description: Anxious Speech Pattern: Clear and Delayed Assessment/Plan (1) AMS (altered mental status): Status: Acute Plan: CT HEAD ON ARRIVAL TO ER BLOOD CULTURES, BP CONTROL IV ATBX, IV HYDRATION VERIFY HOME MEDICATIONS BS CONTROL, CXR ON ARRIVAL PRN SUPPLEMENTAL O2 (2) UTI (urinary tract infection): Qualifiers: Hematuria presence: with hematuria Urinary tract infection type: site unspecified Qualified Code(s): N39.0 - Urinary tract infection, site not specified; R31.9 - Hematuria, unspecified Status: Acute (3) Hypotension: Status: Acute (4) Diabetes: Status: Acute (5) Spinal disease: Status: Acute
[2025-06-15] MEDS: TORADOL 30 MG VIAL IVP ONE (15:42)
[2025-06-15] MEDS: PERCOCET TAB 5/325 MG PO SCH (21:38)
[2025-06-16] MEDS: PERCOCET TAB 5/325 MG PO SCH ×2 (04:03→09:39)
[2025-06-16 06:03] LABS: MEAN PLATELET VOLUME 8.1 fL (7.4-11.0); RED CELL DISTRIBUTION WIDTH 14.7 % (11.6-16.5)
[2025-06-16 06:08] LABS: COR CA(FOR HYPOALB) 10.1 mg/dL (8.5-10.1); CREATININE 0.84 mg/dL (0.55-1.02); eGFR NON BLACK RACES > 60 (>60)
[2025-06-16] MEDS ORDERED: CONSULT PHARMACY - POTASSIUM & MAGNESIUM XX SCH (08:00)
--- NOTE | 2025-06-16 08:19 | RAD ---
EXAM: CHEST, 1 VIEW HISTORY: SOB / FEVER / AMS; COMPARISON: 03/01/2025 FINDINGS: Abnorm al opacity is present in the lower lungs. This could be artifact from overlying soft tissues or could be in the lung parenchyma and represent pneumonia. Findings were not present previously. The upper lungs are clear. No pleural effusion. Heart size is normal. Atherosclerotic calcifications are present in the aorta. Dextroconvex scoliosis is present. Surgical clips are present in the right upper abdomen, probably from a cholecystectomy. Surgical clips are present in the right axilla. Fixation hardware is present in the cervical spine. IMPRESSION: 1. Possible basilar pneumonia versus overlying soft tissues THIS IS AN ELECTRONICALLY VERIFIED FINAL REPORT 06/16/2025 8:16 AM - Electronically signed by Prem Zhu MD
[2025-06-16] MEDS ORDERED: PHARMACY CONSULT XX SCH (09:00)
[2025-06-16] MEDS: NS 1,000 ML IV 1,000 ML with MAGNESIUM SULFATE 50% INJ VIAL 1 G IV SCH (09:30)
[2025-06-16] MEDS: LEVAQUIN PREMIX IV 750 MG 750 MG/150 ML BAG IV SCH (09:33)
[2025-06-16] MEDS: LOVENOX INJ 40 MG SYR SC SCH (09:38)
[2025-06-16] MEDS: DIOVAN TAB 80 MG PO SCH (09:41)
[2025-06-16] MEDS: OMNIPAQUE 350 mg/mL 100 mL BTL 100 ML ONE (09:43)
--- NOTE | 2025-06-16 09:45 | CT ---
EXAMINATION: ABDCMEN/PELVIS WITH CON HISTORY: fever; COMPARISON: CT abdomen 01/20/2025 TECHNIQUE: Contiguous axial CT images of the abdomen and pelvis following intravenous contrast. Images reviewed in the axial imaging plane with reformatted sagittal and coronal images.The above CT scan was done with automated exposure control and the mA and kV was adjusted to obtain quality images according to patient size. FINDINGS: The liver measures 19 by 18 by 18 cm and demonstrates homogeneous enhancement. Cholecystectomy. No significant bile duct dilatation. Pancreas, spleen, adrenal glands appear intact. Kidneys normal size and position. There is a 2.4 x 1.9 x 1.4 cm renal mass lateral aspect upper pole right kidney central density 63 Hounsfield units. No hydronephrosis. Scattered arterial vascular calcifications abdominal aorta and branch vessels. Details of the GI tract are limited since oral contrast was not used. Moderate amount of feces. Scattered colonic diverticulosis. No evidence of acute appendicitis. Small amount of food and air within the stomach. No ascites. No evidence of acute appendicitis. Urinary bladder mildly distended with urine. Mild diffuse thickening of the grier of the urinary bladder. Subtle stranding/edema of the fat surrounding the urinary bladder potential acute cystitis. Uterus is absent. Generalized subcutaneous edema about the abdomen and pelvis. Patchy infiltrates in the posteroinferior lower lobes of the chest. Trace right-sided pleural effusion. Partially imaged bilateral breast augmentation implants. Fusion hardware lower lumbar spine. IMPRESSION: Mild diffuse thickening of the grier of the urinary bladder. Subtle stranding/edema of the fat surrounding the urinary bladder potential acute cystitis. Indeterminate 2.4 cm renal mass lateral aspect upper pole right kidney. Recommend follow-up MRI of the abdomen following the renal mass imaging protocol. Moderate amount of feces. Scattered colonic diverticulosis. Cholecystectomy and hysterectomy. Mild hepatomegaly. THIS IS AN ELECTRONICALLY VERIFIED FINAL REPORT 06/16/2025 9:41 AM - Electronically signed by Tanesha Washington MD
[2025-06-16] MEDS: MILK OF MAGNESIA PO SCH (12:14)
[2025-06-16] MEDS: COLACE CAP 100 MG PO SCH (20:24)
[2025-06-17 06:52] LABS: MEAN PLATELET VOLUME 7.8 fL (7.4-11.0); RED CELL DISTRIBUTION WIDTH 14.4 % (11.6-16.5)
[2025-06-17 07:13] LABS: COR CA(FOR HYPOALB) 10.5 mg/dL (8.5-10.1); CREATININE 0.52 mg/dL (0.55-1.02); eGFR NON BLACK RACES > 60 (>60)
[2025-06-17 07:18] LABS: BAND NEUTROPHILS % 5 % (0-10)
[2025-06-17 07:19] LABS: PLATELET MORPHOLOGY COMMENT NORMAL (NORMAL)
[2025-06-17] MEDS: LASIX IVP ONE (09:27)
[2025-06-17] MEDS: DILAUDID INJ IVP PRN (09:28)
--- NOTE | 2025-06-17 11:49 | RAD ---
EXAM: CHEST, 1 VIEW HISTORY: FEVER, SOB; DOUBLE MASTECTOMY, GB, PARTIAL HYST COMPARISON: Prior study or studies were utilized for comparison during interpretation with the most relevant dated 06/15/2025 TECHNIQUE: CHEST, 1 VIEW FINDINGS: Chest: Lines and tubes: None Mediastinum: Cardiac and mediastinal shadow is within normal limits for size and contour. Pulmonary vessels: No pulmonary vascular congestion. Lung smith: Patchy opacities are seen Pleura: No effusion. No pneumothorax. Bones and soft tissues: No acute osseous or soft tissue abnormality. IMPRESSION: 1. Slightly worsening bilateral airspace opacities THIS IS AN ELECTRONICALLY VERIFIED FINAL REPORT 06/17/2025 11:46 AM - Electronically signed by Alfonso Rebollar MD
[2025-06-17] MEDS: MULTIHANCE INJ VIAL ONE (12:09)
--- NOTE | 2025-06-17 12:34 | MRI ---
EXAM: MRI ABDOMEN WITH AND WITHOUT CONTRAST WITH MRCP HISTORY: ABNORMAL CT SCAN; multihance 20cc injected LAC . COMPARISON: CT June 16, 2025. TECHNIQUE: Using a phased-array coil, MRI of the abdomen was obtained with and without contrast. In addition to standard imaging, MRCP sequences were acquired including 3D reconstructions. Informed written consent was obtained from the patient prior to contrast administration. FINDINGS: MRCP: GALLBLADDER: Absent HEPATOBILIARY: There is no intra or extra hepatic biliary ductal dilatation. There are no filling defects to suggest choledocholithiasis. PANCREATIC DUCT: There is traditional ductal anatomy. The pancreatic duct is normal in caliber without ductal irregularity to suggest chronic pancreatitis. MRI: LOWER THORAX: Normal LIVER: The liver shows no focal mass. There are no morphologic changes of cirrhosis. There is no evidence of steatosis on in and out of phase imaging. SPLEEN: Normal PANCREAS: Normal appearance of the parenchyma. KIDNEYS: Evaluation of the kidneys is difficult due to motion artifact which is significant on this exam. There is a apparent lesion in the upper pole of the right kidney demonstrating a size of a proximally 3.3 cm which appears solid and enhancing. This is difficult to characterize given the degree of motion. ADRENAL GLANDS: Normal GI TRACT: Normal course and caliber, though examination not tailored for evaluation of the bowel. LYMPH NODES: No enlarged nodes VESSELS: Normal PERITONEUM / RETROPERITONEUM: No ascites BONES: Normal IMPRESSION: MRI of the abdomen is very limited due to degree of motion. There is an apparent mass upper pole right kidney measuring approximate size of a proximally 3.3 cm. This does appear to enhance and is ultimately suspicious for neoplasm. Urologic consultation suggested. THIS IS AN ELECTRONICALLY VERIFIED FINAL REPORT 06/17/2025 12:30 PM - Electronically signed by Jw Tavarez MD
[2025-06-17] MEDS: ALBUMIN HUMAN 25%- 100 ML 100 ML IV SCH (15:38)
[2025-06-17] MEDS: ROCEPHIN VIAL 1 GRAM 1 G in NS 100 ML IV 100 ML IV SCH (20:32)
[2025-06-18 06:23] LABS: MEAN PLATELET VOLUME 7.5 fL (7.4-11.0); RED CELL DISTRIBUTION WIDTH 13.9 % (11.6-16.5)
[2025-06-18 06:32] LABS: COR CA(FOR HYPOALB) 9.7 mg/dL (8.5-10.1); CREATININE 0.38 mg/dL (0.55-1.02); eGFR NON BLACK RACES > 60 (>60)
[2025-06-18] MEDS ORDERED: CONSULT PHARMACY - POTASSIUM & MAGNESIUM XX SCH (08:00)
[2025-06-18 08:06] VITALS: O2SAT 92
[2025-06-18] MEDS: K-DUR TAB 20 MEQ PO SCH (08:29)
[2025-06-18] MEDS: EFFEXOR XR 150 MG CAP 24-HR PO SCH (08:29)
[2025-06-18] MEDS: MAG-OX TAB PO SCH (08:29)
[2025-06-18] MEDS: NS 1,000 ML IV 1,000 ML with MAGNESIUM SULFATE 50% INJ VIAL 1 G IV SCH (08:30)
--- NOTE | 2025-06-18 10:33 | RAD ---
EXAM: CHEST, 1 VIEW HISTORY: bibasilar airspace opacities; COMPARISON: Prior study or studies were utilized for comparison during interpretation with the most relevant dated 06/17/2025 TECHNIQUE: CHEST, 1 VIEW FINDINGS: Chest: Lines and tubes: None Mediastinum: Cardiac and mediastinal shadow is within normal limits for size and contour. Pulmonary vessels: Worsening pulmonary vascular congestion Lung smith: Worsening airspace opacities Pleura: No effusion. No pneumothorax. Bones and soft tissues: No acute osseous or soft tissue abnormality. IMPRESSION: 1. Worsening vascular congestion and airspace opacities compared to yesterday THIS IS AN ELECTRONICALLY VERIFIED FINAL REPORT 06/18/2025 10:29 AM - Electronically signed by Alfonso Rebollar MD
[2025-06-18] MEDS: BENADRYL INJ 50 MG VIAL IV ONE (11:18)
[2025-06-18] MEDS: LASIX IVP NR (11:19)
[2025-06-18 11:57] VITALS: BP 164/86; PULSE 72; RESP 21; TEMP 97.4
== END 2025-06-18 13:00 | disposition home health service (06) | DRG 872 ==
LOC: MED/SURG 08:58 → ER 08:58 → MED/SURG 15:15
PROVIDERS: ADMIT Internal Medicine; ATTEND Internal Medicine